=== PATIENT | male | born 1940 | race African-American/Black ===

== ENCOUNTER 2019-11-19 10:52 | Outpatient (CLI) | payer MEDICARE, SELFPAY ==
[2019-11-19 11:25] LABS: Basophils Percent Auto 0.5 % (0.2-1.2); Eosinophils Absolute Auto 0.3 K/mm3 (0-0.3); Eosinophils Percent Auto 3.8 % (0-4.4); Hematocrit 41.8 % (42.0-52.0); Hemoglobin 13.7 g/dL (14.0-18.0); Immature Granulocyte Absolute 0.01 K/mm3 (0.00-0.031); Immature Granulocyte Percent A 0.1 % (0-0.5); Lymphocytes Absolute Auto 2.19 K/mm3 (0.9-3.2); Lymphocytes Percent Auto 28.9 % (18.3-44.2); Mean Corpuscular HGB Conc 32.8 g/dl (32-36); Mean Corpuscular Hemoglobin 29.4 pg (26-34); Mean Corpuscular Volume 89.7 fl (80-100); Mean Platelet Volume 10.9 fl (7.4-10.4); Monocytes Absolute Auto 0.7 K/mm3 (0.1-0.6); Monocytes Percent Auto 8.6 % (2.6-8.5); Neutrophils Absolute Auto 4.4 K/mm3 (1.3-6.7); Neutrophils Percent Auto 58.1 % (45.5-73.1); Platelet Count Result 216 k/mm3 (150-375); Red Blood Count 4.66 M/mm3 (4.6-6.20); Red Cell Distribution Width 12.1 % (11.5-14.5); White Blood Count 7.6 K/mm3 (4.5-10.0)
[2019-11-19 11:38] LABS: Alanine Aminotransferase 21 U/L (4-50); Albumin Level 4.2 g/dL (3.5-5.1); Alkaline Phosphatase 89 U/L (38-126); Aspartate Amino Transferase 28 U/L (17-59); Bilirubin,Total 0.4 mg/dL (0.2-1.3); Blood Urea Nitrogen 16 mg/dL (9-20); Carbon Dioxide 27 mmol/L (22-30); Chloride 100 mmol/L (98-107); Estimated Glomerular Filt Rate > 60; Glucose 103 mg/dL (75-110); Potassium 4.3 mmol/L (3.4-5.0); Sodium 136 mmol/L (137-145)
[2019-11-19 12:08] LABS: Thyroid Stimulating Hormone 0.902 uIU/mL (0.465-4.680)
[2019-11-19 12:10] LABS: Prostate Specific Antigen 10.8 ng/mL (< OR = 4.0)
[2019-11-19 12:31] LABS: Hemoglobin A1C 6.5 % (<5.7)
[2019-11-19 12:32] LABS: Creatinine Urine 32.4 mg/dL
[2019-11-19 12:37] LABS: MALB Creatinine Ratio 18.8 mg/g (0-30); Microalbumin Urine Random 6.1 mg/L (0-16.7)
== END 2019-11-19 10:53 | disposition home or self-care (01) ==
PROVIDERS: PCP Internal Medicine; Visit Provider Internal Medicine
DX: M1A.9XX0 Chronic gout, unspecified, without tophus (tophi) (principal); E11.65 Type 2 diabetes mellitus with hyperglycemia; Z85.46 Personal history of malignant neoplasm of prostate; E04.2 Nontoxic multinodular goiter
CPT/HCPCS: 36415; 80053; 82043; 83036; 84153; 84443; 84550; 85025

== ENCOUNTER 2020-04-06 10:27 | Outpatient (CLI) | payer MEDICARE, SELFPAY ==
[2020-04-06 11:14] LABS: Creatinine Urine 71.2 mg/dL; Total Protein Urine Random 12 mg/dL
[2020-04-06 11:19] LABS: Albumin Level 4.1 g/dL (3.5-5.1); Blood Urea Nitrogen 16 mg/dL (9-20); Calcium 9.7 mg/dL (8.4-10.2); Carbon Dioxide 30 mmol/L (22-30); Chloride 104 mmol/L (98-107); Estimated Glomerular Filt Rate 59; Glucose 113 mg/dL (75-110); Phosphorus 3.2 mg/dL (2.5-4.5); Potassium 4.5 mmol/L (3.4-5.0); Sodium 137 mmol/L (137-145)
[2020-04-06 11:28] LABS: Parathyroid Intact 44.7 pg/mL (7.5-53.5)
[2020-04-06 11:58] LABS: Vitamin D 25 Hydroxy 51.4 ng/mL
== END 2020-04-06 10:28 | disposition home or self-care (01) ==
PROVIDERS: PCP Internal Medicine; Visit Provider Internal Medicine Nephrology
DX: N18.3 Chronic kidney disease, stage 3 (moderate) (principal); Z90.5 Acquired absence of kidney; E11.9 Type 2 diabetes mellitus without complications
CPT/HCPCS: 36415; 80069; 82306; 82570; 83970; 84156

== ENCOUNTER 2020-05-18 13:22 | Outpatient (CLI) | payer MEDICARE, SELFPAY ==
[2020-05-18 14:07] LABS: Basophils Percent Auto 0.5 % (0.2-1.2); Eosinophils Absolute Auto 0.4 K/mm3 (0-0.3); Eosinophils Percent Auto 4.8 % (0-4.4); Hematocrit 40.9 % (42.0-52.0); Hemoglobin 13.7 g/dL (14.0-18.0); Immature Granulocyte Absolute 0.02 K/mm3 (0.00-0.031); Immature Granulocyte Percent A 0.2 % (0-0.5); Lymphocytes Absolute Auto 2.13 K/mm3 (0.9-3.2); Lymphocytes Percent Auto 26.2 % (18.3-44.2); Mean Corpuscular HGB Conc 33.5 g/dl (32-36); Mean Corpuscular Hemoglobin 29.7 pg (26-34); Mean Corpuscular Volume 88.5 fl (80-100); Mean Platelet Volume 11.3 fl (7.4-10.4); Monocytes Absolute Auto 0.8 K/mm3 (0.1-0.6); Monocytes Percent Auto 9.2 % (2.6-8.5); Neutrophils Absolute Auto 4.8 K/mm3 (1.3-6.7); Neutrophils Percent Auto 59.1 % (45.5-73.1); Platelet Count Result 195 k/mm3 (150-375); Red Blood Count 4.62 M/mm3 (4.6-6.20); Red Cell Distribution Width 12.4 % (11.5-14.5); White Blood Count 8.1 K/mm3 (4.5-10.0)
[2020-05-18 14:17] LABS: Cholesterol 145 mg/dL (0-200); HDL Direct 34 mg/dL; Triglycerides 212 mg/dL (<150)
[2020-05-18 14:24] LABS: Hemoglobin A1C 6.3 % (<5.7)
[2020-05-18 14:27] LABS: LDL Cholesterol Direct 78 mg/dL
== END 2020-05-18 13:23 | disposition home or self-care (01) ==
PROVIDERS: PCP Internal Medicine; Visit Provider Internal Medicine
DX: E04.2 Nontoxic multinodular goiter (principal); E11.22 Type 2 diabetes mellitus with diabetic chronic kidney disease; E11.65 Type 2 diabetes mellitus with hyperglycemia; E78.2 Mixed hyperlipidemia; N18.3 Chronic kidney disease, stage 3 (moderate)
CPT/HCPCS: 36415; 80061; 83036; 85025

== ENCOUNTER 2020-08-10 13:44 | Outpatient (CLI) | payer MEDICARE, SELFPAY ==
[2020-08-10 14:29] LABS: Creatinine Urine 52.4 mg/dL; Total Protein Urine Random 13 mg/dL
[2020-08-10 14:37] LABS: Albumin Level 3.8 g/dL (3.5-5.1); Anion Gap 4 mmol/L (8-16); Blood Urea Nitrogen 17 mg/dL (9-20); Calcium 9.6 mg/dL (8.4-10.2); Carbon Dioxide 32 mmol/L (22-30); Chloride 104 mmol/L (98-107); Estimated Glomerular Filt Rate 59; Glucose 132 mg/dL (75-110); Phosphorus 3.1 mg/dL (2.5-4.5); Potassium 4.2 mmol/L (3.4-5.0); Sodium 140 mmol/L (137-145)
== END 2020-08-10 13:45 | disposition home or self-care (01) ==
PROVIDERS: PCP Internal Medicine; Referring Provider Internal Medicine; Visit Provider Internal Medicine Nephrology
DX: E11.9 Type 2 diabetes mellitus without complications (principal); I12.9 Hypertensive chronic kidney disease with stage 1 through stage 4 chronic kidney disease, or unspecified chronic kidney disease; N18.2 Chronic kidney disease, stage 2 (mild); R80.8 Other proteinuria
CPT/HCPCS: 36415; 80069; 82570; 84156

== ENCOUNTER 2020-11-18 10:18 | Outpatient (CLI) | payer MEDICARE, SELFPAY ==
--- NOTE | ~2020-11-18 | US_ITS ---
EXAMINATION: US thyroid DATE: 11/18/2020 11:05 INDICATION: Goiter with history of outside benign biopsy. TECHNIQUE: Multiple ultrasound images of the thyroid were obtained. COMPARISON: Ultrasound 09/04/2016, 01/22/14 FINDINGS: The right thyroid lobe measures 8.1 x 4.9 x 4.9 cm. The left thyroid lobe measures 10.2 x 5.0 x 5.6 cm. The thyroid is filled with nodules of similar ultrasound appearance without normal intervening p arenchyma. IMPRESSION: 1. Chronic multinodular goiter with overall increase in size of the thyroid from 09/04/2016. Biopsy i s likely not needed in the absence of cervical lymphadenopathy. Reviewed, dictated and finalized at location A. CARRIER IMPRESSION: 1. Chronic multinodular goiter with overall increase in size of the thyroid fro m 09/04/2016. Biopsy is likely not needed in the absence of cervical lymphadeno devin.
== END 2020-11-18 10:19 | disposition home or self-care (01) ==
PROVIDERS: PCP Internal Medicine; Visit Provider Internal Medicine
DX: E04.2 Nontoxic multinodular goiter (principal)
CPT/HCPCS: 76536

== ENCOUNTER 2020-12-10 09:29 | Emergency (ER) | payer MEDICARE, SELFPAY ==
[2020-12-10] VITALS (10 sets, daily range): BP systolic 100; BP diastolic 56; PULSE 77–86; RESP 11–24; TEMP 36.8; O2SAT 97–100
--- NOTE | ~2020-12-10 | XR_ITS ---
EXAMINATION: XR chest 1V portable INDICATION: Shortness of breath TECHNIQUE: Portable AP chest at 1222 hours COMPARISON: 04/23/2008 FINDINGS: There are airspace opacities of the mid and lower lung zones. There is no pleural effusion or pneumothorax. The cardiomediastinal silhouette is normal. The visualized osseous structures are un remarkable. IMPRESSION: 1. Airspace opacities of the mid and lower lung zones, likely pneumonia (appearance can be seen in CO VID 19). Reviewed, dictated and finalized at location A. SUPERINTENDENT IMPRESSION: 1. Airspace opacities of the mid and lower lung zones, likely pneumonia (appear ance can be seen in COVID 19).
--- NOTE | 2020-12-10 10:19 | ED.ABDPAIN ---
HPI - Abdominal Pain General Chief Complaint: Abdominal Pain Stated Complaint: abd pain, covid + 10 days ago Time Seen by Provider: 12/10/20 09:50 Source: patient Mode of arrival: ambulatory Limitations: no limitations History of Present Illness HPI narrative: An 80-year-old male comes into the emergency department today with complaints of abdominal pain. Patient stated that this was sharp, severe in nature and throughout his entire abdomen. Patient states that it started earlier this morning. He does note that he had some pain with this yesterday. He notes that this has happened in the past and spontaneously resolved before he can come to the emergency department. He does note now that by my examination his pain has completely subsided. He denies any associated symptoms including nausea, vomiting or diarrhea. Patient otherwise notes that his bowel and bladder habits have been normal for him. Related Data Home Medications Medication Instructions Recorded Confirmed calcium pantothenate 500 mg tablet mg PO 11/07/19 11/15/20 fluticasone propionate 50 2 spray NASAL DAILY 11/07/19 11/15/20 mcg/actuation nasal spray,suspension leuprolide (3 month) 11.25 mg (3 11.25 mg IM [id number] 11/07/19 11/15/20 month) intramuscular syringe kit mecobalamin (vitamin B12) 1,000 1,000 mcg SUBLINGUAL DAILY 11/07/19 11/15/20 mcg disintegrating tablet,sublingual Allergies Allergy/AdvReac Type Severity Reaction Status Date / Time adhesive tape Allergy Severe VERY LARGE Verified 12/10/20 09:52 BLISTERS morphine AdvReac Severe SEVERE N/V Verified 12/10/20 09:52 WITH EVERY DOSE Review of Systems Review of Systems: Narrative: CONSTITUTIONAL: Denies fever, chills, or sweats. EYES: Denies visual changes, redness, or discharge. ENT: Denies rhinorrhea, congestion, sore throat, or otalgia. CARDIOVASCULAR: Denies chest pain, palpitations, or edema. RESPIRATORY: Denies cough or dyspnea. GASTROINTESTINAL: Denies abdominal pain, nausea, vomiting, or diarrhea. GENITOURINARY: Denies dysuria or hematuria. SKIN: Denies rash or itching. MUSCULOSKELETAL: Denies back pain, joint pain, or myalgia. NEUROLOGIC: Denies headache, numbness, dizziness, or weakness. PSYCHIATRIC: Denies anxiety or depression. [facility] Family History Family History Sibling Family history of malignant neoplasm Family history of heart disease in male family member before age 55 Father Family history of diabetes mellitus in first degree relative Family history of heart disease in male family member before age 55 Diabetes mellitus Family history of cardiovascular disease, Onset Age: 76 Mother Family history of diabetes mellitus in first degree relative Family history of heart disease in male family member before age 55 Diabetes mellitus Hypertension Family history of cardiovascular disease, Onset Age: 77 Social History Social History Alcohol intake: never Gender identity (if verbalized by the patient): Male Exam Narrative: Exam Narrative: GENERAL: Well-appearing, well-nourished, and in no acute distress. HEAD: Normocephalic, atraumatic. EYES: PERRLA and EOMI. ENT: Nares clear, no rhinorrhea or epistaxis. Mucous membranes moist. NECK: Supple. No adenopathy or masses. No carotid bruits or JVD CHEST: Clear to auscultation. No respiratory distress. No wheezes rales or rhonchi HEART: Regular rate and rhythm. No murmur heard. Normal peripheral pulses. ABDOMEN: Soft, nontender, nondistended, normal active bowel sounds. EXTREMITIES: Normal range of motion. No edema. SKIN: Warm, dry, no rash. NEURO: No focal deficits. Alert and oriented x3. PSYCH: Normal mood and affect. Course Reevaluation(s) Reevaluation #1: Reevaluated patient. He was resting comfortably in the room, even asleep. I woke the patient and explained
[2020-12-10 10:29] LABS: Basophils Percent Auto 0.2 % (0.2-1.2); Hematocrit 42.7 % (42.0-52.0); Hemoglobin 14.3 g/dL (14.0-18.0); Immature Granulocyte Absolute 0.03 K/mm3 (0.00-0.031); Immature Granulocyte Percent A 0.5 % (0-0.5); Lymphocytes Absolute Auto 1.61 K/mm3 (0.9-3.2); Lymphocytes Percent Auto 24.6 % (18.3-44.2); Mean Corpuscular HGB Conc 33.5 g/dl (32-36); Mean Corpuscular Hemoglobin 29.4 pg (26-34); Mean Corpuscular Volume 87.9 fl (80-100); Mean Platelet Volume 11.5 fl (7.4-10.4); Monocytes Absolute Auto 0.8 K/mm3 (0.1-0.6); Monocytes Percent Auto 11.9 % (2.6-8.5); Neutrophils Absolute Auto 4.1 K/mm3 (1.3-6.7); Neutrophils Percent Auto 62.8 % (45.5-73.1); Platelet Count Result 142 k/mm3 (150-375); Red Blood Count 4.86 M/mm3 (4.6-6.20); Red Cell Distribution Width 12.1 % (11.5-14.5); White Blood Count 6.6 K/mm3 (4.5-10.0)
[2020-12-10 10:39] LABS: Add Urine Microscopic? YES; Appearance Urine Clear (Clear); Bacteria Urine Trace /hpf; Bilirubin Urine Negative (Negative); Blood Urine Negative (Negative); Color Urine Yellow (Yellow); Glucose Urine UA Negative (Negative); Ketones Urine Negative (Negative); Leukocyte Esterase Ur Negative LEU/UL (Negative); Mucus Urine Rare /lpf; Nitrate Urine Negative (Negative); Protein Urine 1+ mg/dL (Negative); Specific Grav Ur 1.023 (1.001-1.035); Squamous Epithelial Cell Urine Occasional /hpf (Few); Transitional Epi Cells Urine Rare /hpf (None Seen); WBC Urine 0-3 /hpf
[2020-12-10 11:12] LABS: Alanine Aminotransferase 24 U/L (4-50); Albumin Level 3.8 g/dL (3.5-5.1); Alkaline Phosphatase 58 U/L (38-126); Anion Gap 5 mmol/L (8-16); Aspartate Amino Transferase 39 U/L (17-59); Bilirubin,Total 0.6 mg/dL (0.2-1.3); Blood Urea Nitrogen 21 mg/dL (9-20); Calcium 9.4 mg/dL (8.4-10.2); Carbon Dioxide 29 mmol/L (22-30); Chloride 100 mmol/L (98-107); Estimated CRCL calculation 34 ml/min; Estimated Glomerular Filt Rate 44; Glucose 117 mg/dL (75-110); Lipase 154 U/L (23-300); Potassium 4.4 mmol/L (3.4-5.0); Sodium 134 mmol/L (137-145)
[2020-12-10 11:23] LABS: Troponin I < 0.012 ng/mL (0.000-0.034)
== END 2020-12-10 13:12 | disposition home or self-care (01) ==
PROVIDERS: Emergency Provider Emergency Medicine; PCP Internal Medicine
DX: U07.1 COVID-19 (principal); R10.84 Generalized abdominal pain; R91.8 Other nonspecific abnormal finding of lung field
CPT/HCPCS: 36415; 71045; 80053; 81001; 83690; 84484; 85025; 99284

== ENCOUNTER 2020-12-23 09:31 | Outpatient (CLI) | payer MEDICARE, SELFPAY ==
[2020-12-23 10:01] LABS: Hematocrit 40.9 % (42.0-52.0); Hemoglobin 13.3 g/dL (14.0-18.0); Mean Corpuscular HGB Conc 32.5 g/dl (32-36); Mean Corpuscular Hemoglobin 28.6 pg (26-34); Mean Platelet Volume 9.9 fl (7.4-10.4); Platelet Count Result 382 k/mm3 (150-375); Red Blood Count 4.65 M/mm3 (4.6-6.20); Red Cell Distribution Width 11.9 % (11.5-14.5); White Blood Count 6.8 K/mm3 (4.5-10.0)
[2020-12-23 10:23] LABS: Hemoglobin A1C 6.5 % (<5.7)
[2020-12-23 10:26] LABS: Alanine Aminotransferase 34 U/L (4-50); Albumin Level 3.9 g/dL (3.5-5.1); Alkaline Phosphatase 79 U/L (38-126); Anion Gap 6 mmol/L (8-16); Aspartate Amino Transferase 45 U/L (17-59); Bilirubin,Total 0.5 mg/dL (0.2-1.3); Blood Urea Nitrogen 15 mg/dL (9-20); Calcium 10.1 mg/dL (8.4-10.2); Carbon Dioxide 29 mmol/L (22-30); Chloride 103 mmol/L (98-107); Estimated Glomerular Filt Rate 51; Glucose 126 mg/dL (75-110); Potassium 4.5 mmol/L (3.4-5.0); Sodium 138 mmol/L (137-145)
[2020-12-23 10:35] LABS: Creatinine Urine 233.1 mg/dL
[2020-12-23 10:40] LABS: MALB Creatinine Ratio 57.4 mg/g (0-30); Microalbumin Urine Random 133.9 mg/L (0-16.7)
[2020-12-23 10:58] LABS: Prostate Specific Antigen 23.6 ng/mL (< OR = 4.0)
[2020-12-23 11:35] LABS: Folic Acid 8.6 ng/mL (2.76->20); Vitamin B12 > 1000.0 pg/mL (239-931)
== END 2020-12-23 09:32 | disposition home or self-care (01) ==
PROVIDERS: PCP Internal Medicine; Visit Provider Internal Medicine
DX: E11.22 Type 2 diabetes mellitus with diabetic chronic kidney disease (principal); E11.65 Type 2 diabetes mellitus with hyperglycemia; E78.2 Mixed hyperlipidemia; I12.9 Hypertensive chronic kidney disease with stage 1 through stage 4 chronic kidney disease, or unspecified chronic kidney disease; D64.9 Anemia, unspecified; Z12.5 Encounter for screening for malignant neoplasm of prostate; N18.30 Chronic kidney disease, stage 3 unspecified
CPT/HCPCS: 36415; 80053; 82043; 82607; 82746; 83036; 84153; 85027; G0103

== ENCOUNTER 2021-01-27 11:04 | Outpatient (CLI) | payer MEDICARE, SELFPAY ==
[2021-01-27 12:41] LABS: Albumin Level 4.3 g/dL (3.5-5.1); Anion Gap 6 mmol/L (8-16); Blood Urea Nitrogen 15 mg/dL (9-20); Calcium 10.1 mg/dL (8.4-10.2); Carbon Dioxide 31 mmol/L (22-30); Chloride 102 mmol/L (98-107); Estimated Glomerular Filt Rate 59; Glucose 98 mg/dL (75-110); Hemoglobin A1C 6.3 % (<5.7); Phosphorus 3.4 mg/dL (2.5-4.5); Potassium 4.8 mmol/L (3.4-5.0); Sodium 139 mmol/L (137-145)
[2021-01-27 13:02] LABS: Creatinine Urine 30.9 mg/dL; Total Protein Urine Random 13 mg/dL; Ur Ttl Prot Creatinine Ratio 0.42 mg/mg (0-0.20)
== END 2021-01-27 11:05 | disposition home or self-care (01) ==
LOC: ANHLAB 11:08
PROVIDERS: PCP Internal Medicine; Visit Provider Internal Medicine Nephrology
DX: N18.2 Chronic kidney disease, stage 2 (mild) (principal); E11.9 Type 2 diabetes mellitus without complications; Z90.5 Acquired absence of kidney
CPT/HCPCS: 36415; 80069; 82570; 83036; 84156

== ENCOUNTER 2021-04-12 11:28 | Outpatient (CLI) | payer MEDICARE, SELFPAY ==
[2021-04-12 12:00] LABS: Basophils Percent Auto 0.4 % (0.2-1.2); Eosinophils Absolute Auto 0.3 K/mm3 (0-0.3); Eosinophils Percent Auto 4.1 % (0-4.4); Hematocrit 41.9 % (42.0-52.0); Hemoglobin 13.5 g/dL (14.0-18.0); Immature Granulocyte Absolute 0.02 K/mm3 (0.00-0.031); Immature Granulocyte Percent A 0.2 % (0-0.5); Lymphocytes Absolute Auto 2.58 K/mm3 (0.9-3.2); Mean Corpuscular HGB Conc 32.2 g/dl (32-36); Mean Corpuscular Hemoglobin 29.4 pg (26-34); Mean Corpuscular Volume 91.3 fl (80-100); Monocytes Absolute Auto 0.6 K/mm3 (0.1-0.6); Monocytes Percent Auto 7.3 % (2.6-8.5); Neutrophils Absolute Auto 4.7 K/mm3 (1.3-6.7); Platelet Count Result 196 k/mm3 (150-375); Red Blood Count 4.59 M/mm3 (4.6-6.20); Red Cell Distribution Width 12.3 % (11.5-14.5); White Blood Count 8.3 K/mm3 (4.5-10.0)
[2021-04-12 12:06] LABS: Hemoglobin A1C 6.4 % (<5.7)
[2021-04-12 12:15] LABS: Alanine Aminotransferase 19 U/L (4-50); Albumin Level 4.3 g/dL (3.5-5.1); Alkaline Phosphatase 78 U/L (38-126); Anion Gap 8 mmol/L (8-16); Aspartate Amino Transferase 32 U/L (17-59); Bilirubin,Total 0.3 mg/dL (0.2-1.3); Blood Urea Nitrogen 15 mg/dL (9-20); Calcium 10.1 mg/dL (8.4-10.2); Carbon Dioxide 28 mmol/L (22-30); Chloride 106 mmol/L (98-107); Estimated Glomerular Filt Rate 54; Glucose 103 mg/dL (75-110); Potassium 4.4 mmol/L (3.4-5.0); Sodium 142 mmol/L (137-145)
[2021-04-12 12:55] LABS: Creatinine Urine 74.8 mg/dL
[2021-04-12 13:00] LABS: MALB Creatinine Ratio 11.1 mg/g (0-30); Microalbumin Urine Random 8.3 mg/L (0-16.7)
== END 2021-04-12 11:29 | disposition home or self-care (01) ==
PROVIDERS: PCP Internal Medicine; Visit Provider Internal Medicine
DX: E11.22 Type 2 diabetes mellitus with diabetic chronic kidney disease (principal); N18.2 Chronic kidney disease, stage 2 (mild); E11.65 Type 2 diabetes mellitus with hyperglycemia; D63.8 Anemia in other chronic diseases classified elsewhere
CPT/HCPCS: 36415; 80053; 82043; 83036; 85025

== ENCOUNTER 2021-07-08 12:02 | Outpatient (CLI) | payer MEDICARE, SELFPAY ==
[2021-07-08 13:15] LABS: Alanine Aminotransferase 25 U/L (4-50); Albumin Level 4.4 g/dL (3.5-5.1); Alkaline Phosphatase 82 U/L (38-126); Anion Gap 9 mmol/L (8-16); Aspartate Amino Transferase 46 U/L (17-59); Bilirubin,Total 0.4 mg/dL (0.2-1.3); Blood Urea Nitrogen 15 mg/dL (9-20); Calcium 10.1 mg/dL (8.4-10.2); Carbon Dioxide 26 mmol/L (22-30); Chloride 104 mmol/L (98-107); Estimated Glomerular Filt Rate 54; Glucose 105 mg/dL (65-110); Potassium 4.5 mmol/L (3.4-5.0); Sodium 139 mmol/L (137-145)
[2021-07-08 14:10] LABS: Creatinine Urine 100.3 mg/dL
[2021-07-08 14:11] LABS: Hemoglobin A1C 6.7 % (<5.7)
[2021-07-08 14:29] LABS: MALB Creatinine Ratio < 6.0 mg/g (0-30); Microalbumin Urine Random < 6.0 mg/L (0-16.7)
== END 2021-07-08 12:03 | disposition home or self-care (01) ==
PROVIDERS: PCP Internal Medicine; Visit Provider Internal Medicine
DX: E11.22 Type 2 diabetes mellitus with diabetic chronic kidney disease (principal); N18.30 Chronic kidney disease, stage 3 unspecified; E11.65 Type 2 diabetes mellitus with hyperglycemia
CPT/HCPCS: 36415; 80053; 82043; 83036

== ENCOUNTER 2021-11-01 10:46 | Outpatient (CLI) | payer MEDICARE, SELFPAY ==
--- NOTE | 2021-11-01 11:00 | ECG_ITS ---
Measurements Intervals Wolsey Rate: 73 P: 65 ND: 150 QRS: 59 QRSD: 84 T: 65 QT: 365 QTc: 405 Interpretive Statements SINUS RHYTHM BASELINE ARTIFACT- I, II, AVR NORMAL ECG Electronically Signed On 11-01-2021 11:37:07 RECEIVING DISTRIBUTION STATION OPERATOR by Preston Chester D.O.
[2021-11-01 11:40] LABS: Anion Gap 9 mmol/L (8-16); Blood Urea Nitrogen 20 mg/dL (9-20); Calcium 9.7 mg/dL (8.4-10.2); Carbon Dioxide 26 mmol/L (22-30); Chloride 103 mmol/L (98-107); Estimated Glomerular Filt Rate 37; Glucose 106 mg/dL (65-110); INR 1.1; Potassium 4.8 mmol/L (3.4-5.0); Prothrombin Time 13.9 Seconds (11.1-14.7); Sodium 138 mmol/L (137-145)
[2021-11-01 11:41] LABS: Partial Thromboplastin Time 26.2 SECONDS (22.3-36.8)
== END 2021-11-01 10:47 | disposition home or self-care (01) ==
LOC: ANHSURGERY 10:50
PROVIDERS: Anesthesiology; PCP Internal Medicine; Visit Provider Urology
DX: Z01.818 Encounter for other preprocedural examination (principal); C64.9 Malignant neoplasm of unspecified kidney, except renal pelvis; I12.9 Hypertensive chronic kidney disease with stage 1 through stage 4 chronic kidney disease, or unspecified chronic kidney disease; E11.22 Type 2 diabetes mellitus with diabetic chronic kidney disease; N18.30 Chronic kidney disease, stage 3 unspecified
CPT/HCPCS: 36415; 80048; 85610; 85730; 93005

== ENCOUNTER 2021-11-03 01:31 | Day surgery (SDC) | payer MEDICARE, SELFPAY ==
--- NOTE | 2021-10-27 07:26 | PM.HPGS ---
History of Present Illness History of Present Illness Consent: Risks, benefits, and alternatives have been discussed and questions answered. Patient agrees to proceed with procedure. Chief complaint: incomplete bladder emptying, kidney cancer Narrative: Buck Givens is a 81 year old male who is status post nephrectomy for renal cell carcinoma and prostate brachytherapy for prostate cancer in the remote past. He recently presented with marked obstructive voiding symptoms and cystoscopy shows both the bulbous urethral stricture and a high median bar. After discussion of options he elects for cysto with urethral dilatation and transurethral incision of prostate. He is aware the risk including, but not but not restricted to, recurrent voiding difficulty, urinary incontinence , hematuria. Review of Systems Cardiovascular: Cardiovascular: Denies chest pain, Denies lightheadedness, Denies palpitations and Denies dyspnea Respiratory: Respiratory: Denies dyspnea Gastrointestinal: Gastrointestinal: Denies diarrhea, Denies nausea and Denies vomiting Genitourinary: Genitourinary: Denies hematuria and Denies dysuria Endocrine: Endocrine: Denies palpitations PMFSH Family History Family History Sibling Family history of malignant neoplasm Family history of heart disease in male family member before age 55 Diabetes mellitus Hypertension Heart disease Father Family history of diabetes mellitus in first degree relative Family history of heart disease in male family member before age 55 Diabetes mellitus Family history of cardiovascular disease, Onset Age: 76 Hypertension Heart disease Mother Family history of diabetes mellitus in first degree relative Family history of heart disease in male family member before age 55 Diabetes mellitus Hypertension Family history of cardiovascular disease, Onset Age: 77 Heart disease Social History Social History Smoking status: Never smoker Second hand tobacco smoke exposure: No Alcohol intake: never Substance use: never Substance use type: does not use Gender identity (if verbalized by the patient): Male Meds Home Medications and Allergies Home Medications Medication Instructions Recorded Confirmed Type calcium pantothenate 500 mg tablet mg PO 11/07/19 07/22/21 History fluticasone propionate 50 2 spray NASAL DAILY 11/07/19 07/22/21 History mcg/actuation nasal spray,suspension leuprolide (3 month) 11.25 mg (3 11.25 mg IM [id number] 11/07/19 07/22/21 History month) intramuscular syringe kit mecobalamin (vitamin B12) 1,000 1,000 mcg SUBLINGUAL DAILY 11/07/19 07/22/21 History mcg disintegrating tablet,sublingual aspirin 81 mg tablet,delayed 81 mg PO DAILY #1 tablet 12/24/20 07/22/21 Rx release allopurinol 100 mg tablet 100 mg PO DAILY #90 tablet 04/11/21 07/22/21 Rx ezetimibe 10 mg-simvastatin 80 mg See Rx Instructions .ROUTE 06/24/21 07/22/21 Rx tablet .COMPLEX #90 tablet dapagliflozin 5 mg tablet 5 mg PO DAILY #90 tablet 07/06/21 07/22/21 Rx losartan 25 mg tablet See Rx Instructions .ROUTE 10/04/21 Rx .COMPLEX #90 tablet Allergies Allergy/AdvReac Type Severity Reaction Status Date / Time adhesive tape Allergy Severe VERY LARGE Verified 07/22/21 08:43 BLISTERS morphine AdvReac Severe SEVERE N/V Verified 07/22/21 08:43 WITH EVERY DOSE Exam Const: General: no acute distress Resp: Effort & Inspection: normal respiratory effort GI: Inspection: non-distended GI Palp: No abdominal tenderness and No Guarding due to palpation present (GI) Auscultation: normal bowel sounds Assessment and Plan Assessment and plan (1) History of prostate cancer: Code(s): Z85.46 - Personal history of malignant neoplasm of prostate Status: Acute Assessment and Plan: Cysto
[2021-11-01 09:30] VITALS: BMI 25.4
--- NOTE | 2021-11-01 09:52 | PC.NURSE ---
Report to the Outpatient Waiting Room, entrance under the green pavilion located off [facility], at time _11:30AM on date __11/03/21 . OR Time: ___1:30PM . - You and your visitor will be asked a series of questions to screen for COVID 19 for your protection. - A mask is required within the hospital. - Only one visitor is allowed at this time. Patient visitors will be guided where to wait when not with patient. Preoperative COVID Testing Requirements: No COVID Test needed if: (proof is required; if not received patient will have Rapid Test prior to entry) - Patient has received COVID Vaccine at least 14 days prior to procedure date or - Patient has positive COVID test result within last 90 days of surgery date. COVID Test needed if above criteria is not met If not COVID vaccinated a COVID test must be conducted within 72 hours of surgery and patient is asked to isolate self from time of testing until procedure. You will go to the [facility] Testing Site for your COVID testing. The [facility] Testing site is located at the corner of [address] [facility]. You will only be called if COVID results are positive and your surgeon may reschedule your elective surgery date. Patients may have clear liquids (water, carbonated beverages, clear teas, apple juice) until 3 hours prior to surgery with a maximum of 20 ounces. - No food from midnight until time of surgery - Infants may have breast milk until 4 hours before surgery, infant formula 6 hours prior to surgery. - Children will be allowed to drink immediately following surgery. If applicable, please bring a bottle or sippy cup to assist with drinking. Juice, water, soda, and popsicles are readily available. For infants on formula, please bring formula the day of surgery. Pacifiers are allowed. Take the following medications with a SIP of water the morning of surgery: ____NONE Medications to discontinue per physician HOLS ASPIRIN & ALL VITAMINS/SUPPLEMENTS 3 Date to take last dose Please no make-up, nail kazakh, hairspray, perfume, deodorant, or body powder the day of surgery. No jewelry (including any body piercings) or valuables the day of surgery, leave them at home. Please take a shower or bath the night before, or the morning of, surgery with an antibacterial soap. Wear comfortable, loose fitting clothing. Children are encouraged to wear pajamas. - Jewelry must be removed prior to entering the operating room. Rings and piercings that are not removed may be cut off. - The hospital will not accept responsibility for valuables. - Please leave all valuables, including medications, at home the day of surgery. If you are going home after surgery, a licensed special education bus driver must drive you home. - NO public transportation without another adult. - We recommend that an adult stay with you for 24 hours following discharge. - We also recommend that you do not drive, make important decision, drink alcoholic beverages, or take any drugs that were not prescribed by your health care provider for at least 24 hours after your discharge time. For Pediatric surgeries, we recommend two adults accompany the child home (only one inside the building at this time). Follow any additional instructions given to you from your surgeon. Telephone instructions given to and asked if any additional questions and then verbalized understanding. Patient advised to call surgeon office or pre surgery nurse liaison [phone] if any additional questions.
--- NOTE | 2021-11-01 09:53 | PC.NURSE ---
Report to the Outpatient Waiting Room, entrance under the green pavilion located off [facility], at time _11:30AM on date _11/03/21 . OR Time: __1:30PM . - You and your visitor will be asked a series of questions to screen for COVID 19 for your protection. - A mask is required within the hospital. - Only one visitor is allowed at this time. Patient visitors will be guided where to wait when not with patient. Preoperative COVID Testing Requirements: No COVID Test needed if: (proof is required; if not received patient will have Rapid Test prior to entry) - Patient has received COVID Vaccine at least 14 days prior to procedure date or - Patient has positive COVID test result within last 90 days of surgery date. COVID Test needed if above criteria is not met If not COVID vaccinated a COVID test must be conducted within 72 hours of surgery and patient is asked to isolate self from time of testing until procedure. You will go to the [facility] Testing Site for your COVID testing. The [facility] Testing site is located at the corner of [address] [facility]. You will only be called if COVID results are positive and your surgeon may reschedule your elective surgery date. Patients may have clear liquids (water, carbonated beverages, clear teas, apple juice) until 3 hours prior to surgery with a maximum of 20 ounces. - No food from midnight until time of surgery - Infants may have breast milk until 4 hours before surgery, infant formula 6 hours prior to surgery. - Children will be allowed to drink immediately following surgery. If applicable, please bring a bottle or sippy cup to assist with drinking. Juice, water, soda, and popsicles are readily available. For infants on formula, please bring formula the day of surgery. Pacifiers are allowed. Take the following medications with a SIP of water the morning of surgery: _NONE Medications to discontinue per physician HOLD ASPIRIN & ALL VITAMINS/SUPPLEMENTS 7 DAYS PRE-OP PER DR. WEBB Date to take last dose 10/27/21 Please no make-up, nail malay, hairspray, perfume, deodorant, or body powder the day of surgery. No jewelry (including any body piercings) or valuables the day of surgery, leave them at home. Please take a shower or bath the night before, or the morning of, surgery with an antibacterial soap. Wear comfortable, loose fitting clothing. Children are encouraged to wear pajamas. - Jewelry must be removed prior to entering the operating room. Rings and piercings that are not removed may be cut off. - The hospital will not accept responsibility for valuables. - Please leave all valuables, including medications, at home the day of surgery. If you are going home after surgery, a licensed mobile lounge driver must drive you home. - NO public transportation without another adult. - We recommend that an adult stay with you for 24 hours following discharge. - We also recommend that you do not drive, make important decision, drink alcoholic beverages, or take any drugs that were not prescribed by your health care provider for at least 24 hours after your discharge time. For Pediatric surgeries, we recommend two adults accompany the child home (only one inside the building at this time). Follow any additional instructions given to you from your surgeon. Telephone instructions given to __PATIENT and asked if any additional questions and then verbalized understanding. Patient advised to call surgeon office or pre surgery nurse liaison [phone] if any additional questions.
[2021-11-03] VITALS (10 sets, daily range): BP systolic 151–169; BP diastolic 64–83; PULSE 66–81; RESP 16–19; TEMP 36.4–37; O2SAT 99–100
--- NOTE | 2021-11-03 07:01 | WPDHPUPDATE1 ---
History and Physical Update Update Date/Time: 11/03/21 07:01 History and Physical has been reviewed, including an updated exam of the patient. There are NO changes in the patient's condition. Risks, benefits, and alternatives have been discussed and questions answered. Patient agrees to proceed with procedure.
[2021-11-03] MEDS: LACTATED RINGERS 1,000 ML 30 ML IV CONT ×2 (11:11→14:21)
--- NOTE | 2021-11-03 11:22 | WPDANESEPPF ---
Anes - Initial Pre Proc Eval Procedure: Operation Date: 11/03/21 12:45 Proposed Procedures p Cystoscopy, Urethral Dilatation - Artemio Alexandra MD s Trans Urethral Incision of The Prostate - Artemio Alexandra MD Date/Time: 11/03/21 11:22 Surgeon: Artemio Alexandra MD Pre Op Diagnosis: incomplete bladder emptying, kidney cancer Patient Data Age: 81 Gender: M Height: 1.88 m Weight: 88 kg Last Vital Signs Temp 37.0 C 11/03/21 11:14 Pulse 79 11/03/21 11:14 Resp 18 11/03/21 11:14 BP 151/77 H 11/03/21 11:14 Pulse Ox 100 11/03/21 11:14 Allergies Allergy/AdvReac Type Severity Reaction Status Date / Time adhesive tape Allergy Severe VERY LARGE Verified 11/03/21 10:56 BLISTERS morphine AdvReac Severe SEVERE N/V Verified 11/03/21 10:56 WITH EVERY DOSE Home Medications Medication Instructions Recorded Confirmed Type calcium pantothenate 500 mg tablet 500 mg PO DAILY 11/07/19 11/03/21 History fluticasone propionate 50 2 spray NASAL DAILY 11/07/19 11/03/21 History mcg/actuation nasal spray,suspension leuprolide (3 month) 11.25 mg (3 11.25 mg IM [id number] 11/07/19 11/03/21 History month) intramuscular syringe kit mecobalamin (vitamin B12) 1,000 1,000 mcg SUBLINGUAL DAILY 11/07/19 11/03/21 History mcg disintegrating tablet,sublingual aspirin 81 mg tablet,delayed 81 mg PO DAILY #1 tablet 12/24/20 11/03/21 Rx release allopurinol 100 mg tablet 100 mg PO DAILY #90 tablet 04/11/21 11/03/21 Rx dapagliflozin [Farxiga] 5 mg PO QAM 11/01/21 11/03/21 History ezetimibe-simvastatin 1 tablet PO DAILY 11/01/21 11/03/21 History losartan 25 mg PO QAM 11/01/21 11/03/21 History Patient hx anesthesia problems: none Family hx anesthesia problems: none Results Review: All pre-operative results and documents have been reviewed as part of the pre-operative evaluation. [facility] Past Medical History Medical History (Updated 11/02/21 @ 09:32 by Willie Appiah DO) CKD stage 3 due to type 2 diabetes mellitus Essential hypertension Mixed hyperlipidemia Type 2 diabetes mellitus with hyperglycemia Family History Family History Sibling Family history of malignant neoplasm Family history of heart disease in male family member before age 55 Diabetes mellitus Hypertension Heart disease Father Family history of diabetes mellitus in first degree relative Family history of heart disease in male family member before age 55 Diabetes mellitus Family history of cardiovascular disease, Onset Age: 76 Hypertension Heart disease Mother Family history of diabetes mellitus in first degree relative Family history of heart disease in male family member before age 55 Diabetes mellitus Hypertension Family history of cardiovascular disease, Onset Age: 77 Heart disease Social History Social History Smoking status: Never smoker Second hand tobacco smoke exposure: No Alcohol intake: never Substance use: never Substance use type: does not use Living arrangements: alone Gender identity (if verbalized by the patient): Male Spiritual care concerns: No Anes - Eval Final PreProcedure Day of Procedure 11/03/21 11:22 Patient weight: normal Heart: regular rate and rhythm Lungs: clear to auscultation and normal air movement Airway: Mallampati scale class II Neurological: alert and oriented Last oral intake: >/= 8 hours ASA classification: III Emergent: no Anesthetic plan: proceed Anesthesia type and monitoring: general LMA and standard monitoring Results Review: All pre-operative results and documents have been reviewed as part of the pre-operative evaluation. Informed Consent: The patient's anesthetic plan and its attendant risks and benefits were discussed with the patient/family/POA. Questions were solicited and answers prov
[2021-11-03 12:23] LABS: Glucose Point of Care 100 mg/dl (65-105)
[2021-11-03] MEDS: ceFAZolin 2 GM/D5W 50 ML 2 GM/50 ML BAG IVPB (12:42)
[2021-11-03] MEDS: LIDOCAINE HCL 2% GEL UROJET 10 ML PKG MUCOUS MEM (13:03)
--- NOTE | 2021-11-03 13:06 | W.PM.PROC2 ---
Procedure Note - Detailed Date of Procedure 11/03/21 Pre-op Diagnosis Urethral stricture, bladder neck contracture Post-op Diagnosis same Procedure Performed 1. Cystoscopy, urethral dilatation 2. TUIP Surgeon Artemio Alexandra MD Anesthesia general Description of Procedure patient brought to the op suite recent prepped draped in routine sterile fashion while in dorsal lithotomy position after the uneventful induction of a general LMA anesthetic. Cystoscopy with a 19 F rigid cystoscope shows a moderately constricting bulbous urethral stricture. I dilated this from 16 F to 26 F with Ren sounds. Patient has had prostate brachytherapy but has mild lateral lobe hyperplasia is no median bar. Bladder was trabeculated. Ureteral orifices were well away from the bladder neck and there was no intravesical foreign body or neoplasm. Using a Pearson knife I performed a transurethral incision of the prostate extending from the bladder neck to the verumontanum until the capsular fibers of the prostate were identified. Hemostasis is obtained with electrocautery in an 18 F urethral catheter was placed to drainage. Drains Yes Packing No Pathology none sent Complications No immediate complications Condition stable Disposition PACU
[2021-11-03] MEDS: fentaNYL CITRATE INJ (*CRX) 100 MCG/2 ML VIAL 25 MCG IV PUSH (13:56)
--- NOTE | 2021-11-04 07:21 | SUR.PHASEII ---
education to patient about powell care and leg bag understanding stated
== END 2021-11-03 15:35 | disposition home or self-care (01) ==
PROVIDERS: PCP Internal Medicine; Visit Provider Urology
PROC: 0T7D8ZZ Dilation of Urethra, Via Natural or Artificial Opening Endoscopic (ICD-10-PCS; CPT 52281; principal; 2021-11-03 12:45)
PROC: 0VT08ZZ Resection of Prostate, Via Natural or Artificial Opening Endoscopic (ICD-10-PCS; CPT 52601; 2021-11-03 12:45)
DX: N35.912 Unspecified bulbous urethral stricture, male (principal); N40.1 Benign prostatic hyperplasia with lower urinary tract symptoms; N13.8 Other obstructive and reflux uropathy; I12.9 Hypertensive chronic kidney disease with stage 1 through stage 4 chronic kidney disease, or unspecified chronic kidney disease; E11.22 Type 2 diabetes mellitus with diabetic chronic kidney disease; N18.30 Chronic kidney disease, stage 3 unspecified; E78.2 Mixed hyperlipidemia; Z79.82 Long term (current) use of aspirin; Z90.5 Acquired absence of kidney; Z85.46 Personal history of malignant neoplasm of prostate; Z85.528 Personal history of other malignant neoplasm of kidney
CPT/HCPCS: 52450; 36415; 80048; 82948; 85610; 85730; 93005; A9270; J0131; J0690; J2405; J2704; J3010; J7120

== ENCOUNTER 2021-11-14 10:15 | Outpatient (CLI) | payer MEDICARE, SELFPAY ==
[2021-11-14 11:11] LABS: Albumin Level 4.1 g/dL (3.5-5.1); Anion Gap 8 mmol/L (8-16); Blood Urea Nitrogen 15 mg/dL (9-20); Calcium 9.8 mg/dL (8.4-10.2); Carbon Dioxide 29 mmol/L (22-30); Chloride 102 mmol/L (98-107); Estimated Glomerular Filt Rate 50; Glucose 217 mg/dL (65-110); Phosphorus 3.6 mg/dL (2.5-4.5); Potassium 4.3 mmol/L (3.4-5.0); Sodium 139 mmol/L (137-145)
[2021-11-14 11:57] LABS: Creatinine Urine 120.1 mg/dL; Total Protein Urine Random 22 mg/dL; Ur Ttl Prot Creatinine Ratio 0.18 mg/mg (0-0.20)
== END 2021-11-14 10:16 | disposition home or self-care (01) ==
PROVIDERS: PCP Internal Medicine; Visit Provider Internal Medicine Nephrology
DX: N18.2 Chronic kidney disease, stage 2 (mild) (principal); E11.9 Type 2 diabetes mellitus without complications; I10 Essential (primary) hypertension; R80.8 Other proteinuria
CPT/HCPCS: 36415; 80069; 82570; 84156

== ENCOUNTER 2022-01-19 15:20 | Outpatient (CLI) | payer MEDICARE, SELFPAY ==
[2022-01-19 15:52] LABS: Basophils Absolute Auto 0.1 K/mm3 (0.0-0.1); Basophils Percent Auto 0.5 % (0.2-1.2); Eosinophils Absolute Auto 0.3 K/mm3 (0-0.3); Eosinophils Percent Auto 3.2 % (0-4.4); Hematocrit 44.9 % (42.0-52.0); Hemoglobin 14.6 g/dL (14.0-18.0); Immature Granulocyte Absolute 0.02 K/mm3 (0.00-0.031); Immature Granulocyte Percent A 0.2 % (0-0.5); Lymphocytes Absolute Auto 3.17 K/mm3 (0.9-3.2); Lymphocytes Percent Auto 32.8 % (18.3-44.2); Mean Corpuscular HGB Conc 32.5 g/dl (32-36); Mean Corpuscular Hemoglobin 29.7 pg (26-34); Mean Corpuscular Volume 91.3 fl (80-100); Mean Platelet Volume 10.5 fl (7.4-10.4); Monocytes Absolute Auto 0.8 K/mm3 (0.1-0.6); Monocytes Percent Auto 8.1 % (2.6-8.5); Neutrophils Absolute Auto 5.3 K/mm3 (1.3-6.7); Neutrophils Percent Auto 55.2 % (45.5-73.1); Platelet Count Result 198 k/mm3 (150-375); Red Blood Count 4.92 M/mm3 (4.6-6.20); White Blood Count 9.7 K/mm3 (4.5-10.0)
[2022-01-19 16:02] LABS: Alanine Aminotransferase 21 U/L (4-50); Albumin Level 4.1 g/dL (3.5-5.1); Alkaline Phosphatase 85 U/L (38-126); Anion Gap 9 mmol/L (8-16); Aspartate Amino Transferase 33 U/L (17-59); Bilirubin,Total 0.5 mg/dL (0.2-1.3); Blood Urea Nitrogen 17 mg/dL (9-20); Calcium 9.7 mg/dL (8.4-10.2); Carbon Dioxide 26 mmol/L (22-30); Chloride 104 mmol/L (98-107); Cholesterol 168 mg/dL (0-200); Estimated Glomerular Filt Rate 54; Glucose 95 mg/dL (65-110); HDL Direct 45 mg/dL; Potassium 4.2 mmol/L (3.4-5.0); Sodium 139 mmol/L (137-145); Triglycerides 139 mg/dL (<150)
[2022-01-19 16:12] LABS: Hemoglobin A1C 6.6 % (<5.7)
[2022-01-19 16:13] LABS: LDL Cholesterol Direct 88 mg/dL
[2022-01-19 16:21] LABS: MALB Creatinine Ratio 40.8 mg/g (0-30); Microalbumin Urine Random 68.9 mg/L (0-16.7)
[2022-01-19 16:32] LABS: Vitamin D 25 Hydroxy 57.6 ng/mL
[2022-01-19 16:33] LABS: Thyroid Stimulating Hormone 0.819 uIU/mL (0.465-4.680)
== END 2022-01-19 15:21 | disposition home or self-care (01) ==
LOC: ANHLAB 15:24
PROVIDERS: PCP Internal Medicine; Visit Provider Internal Medicine
DX: E11.65 Type 2 diabetes mellitus with hyperglycemia (principal); E78.2 Mixed hyperlipidemia; E11.22 Type 2 diabetes mellitus with diabetic chronic kidney disease; N18.30 Chronic kidney disease, stage 3 unspecified; N40.0 Benign prostatic hyperplasia without lower urinary tract symptoms; E55.9 Vitamin D deficiency, unspecified
CPT/HCPCS: 36415; 80053; 80061; 82043; 82306; 83036; 84443; 85025

== ENCOUNTER 2022-02-01 10:07 | Outpatient (CLI) | payer MEDICARE, SELFPAY ==
--- NOTE | ~2022-02-01 | US_ITS ---
EXAMINATION: US thyroid EXAM DATE: 02/01/2022 12:21 INDICATION: E04.2 - Nontoxic multinodular goiter . TECHNIQUE: Multiple grayscale and Doppler images of the thyroid were obtained (by a technologist who performed the scan) and subsequently reviewed. Individual nodules and recommendations may be reporte d in accordance with TI-RADS system as designated by the 2017 ACR White Paper TI-RADS committee. Comp arison is made to prior examination from 11/18/2020, 09/04/2016. FINDINGS: The right thyroid lobe measures 8.4 x 6.1 x 4.4 cm, the left measuring 11.7 x 5.3 x 4.9 cm, dimension s are severely enlarged, overall not significantly changed compared to last year but increased compar ed to 2015. Again there are multiple thyroid nodules, up to 3.6 cm on the right and 5.2 cm on the lef t. Typically biopsied not effective for numerous thyroid nodules in absence of lymphadenopathy. IMPRESSION: Multinodular goiter. Reviewed, dictated and finalized at location B. IMPRESSION: Multinodular goiter.
== END 2022-02-01 10:08 | disposition home or self-care (01) ==
PROVIDERS: PCP Internal Medicine; Visit Provider Internal Medicine
DX: E04.2 Nontoxic multinodular goiter (principal)
CPT/HCPCS: 76536

== ENCOUNTER 2022-04-28 09:27 | Outpatient (CLI) | payer MEDICARE, SELFPAY ==
[2022-04-28 14:12] LABS: Creatinine Urine 284.7 mg/dL; Total Protein Urine Random 23 mg/dL; Ur Ttl Prot Creatinine Ratio 0.08 mg/mg (0-0.20)
[2022-04-28 14:18] LABS: Anion Gap 5 mmol/L (8-16); Blood Urea Nitrogen 17 mg/dL (9-20); Calcium 9.2 mg/dL (8.4-10.2); Carbon Dioxide 29 mmol/L (22-30); Chloride 105 mmol/L (98-107); Estimated Glomerular Filt Rate 50; Glucose 169 mg/dL (65-110); Phosphorus 3.3 mg/dL (2.5-4.5); Potassium 4.3 mmol/L (3.4-5.0); Sodium 139 mmol/L (137-145)
[2022-04-28 14:33] LABS: Parathyroid Intact 65.4 pg/mL (7.5-53.5)
[2022-04-28 14:38] LABS: Vitamin D 25 Hydroxy 51.1 ng/mL
== END 2022-04-28 09:28 | disposition home or self-care (01) ==
LOC: ANHLAB 09:29
PROVIDERS: PCP Internal Medicine; Visit Provider Internal Medicine Nephrology
DX: N18.31 Chronic kidney disease, stage 3a (principal); E11.29 Type 2 diabetes mellitus with other diabetic kidney complication; Z90.5 Acquired absence of kidney; E55.9 Vitamin D deficiency, unspecified
CPT/HCPCS: 36415; 80069; 82306; 82570; 83970; 84156

== ENCOUNTER 2022-07-27 10:01 | Outpatient (CLI) | payer MEDICARE, SELFPAY ==
[2022-07-27 10:57] LABS: Alanine Aminotransferase 23 U/L (6-50); Alkaline Phosphatase 68 U/L (38-126); Anion Gap 10 mmol/L (8-16); Aspartate Amino Transferase 29 U/L (17-59); Bilirubin,Total 0.3 mg/dL (0.2-1.3); Blood Urea Nitrogen 17 mg/dL (9-20); Carbon Dioxide 25 mmol/L (22-30); Chloride 103 mmol/L (98-107); Cholesterol 147 mg/dL (0-200); Estimated Glomerular Filt Rate 50; Glucose 117 mg/dL (65-110); HDL Direct 40 mg/dL; Potassium 4.5 mmol/L (3.4-5.0); Sodium 138 mmol/L (137-145); Triglycerides 119 mg/dL (<150)
[2022-07-27 11:10] LABS: LDL Cholesterol Direct 76 mg/dL
== END 2022-07-27 10:02 | disposition home or self-care (01) ==
LOC: ANHLAB 10:03
PROVIDERS: PCP Internal Medicine; Visit Provider Nurse Practitioner
DX: E11.9 Type 2 diabetes mellitus without complications (principal); E78.5 Hyperlipidemia, unspecified
CPT/HCPCS: 36415; 80053; 80061; 83036

== ENCOUNTER 2022-07-28 15:02 | Outpatient (CLI) | payer MEDICARE, SELFPAY ==
[2022-07-28 15:24] LABS: WBC Urine 0-3 /hpf
[2022-07-28 15:27] LABS: Appearance Urine Clear (Clear); Bilirubin Urine Negative (Negative); Blood Urine Negative (Negative); Color Urine Yellow (Yellow); Glucose Urine UA 3+ mg/dL (Negative); Ketones Urine Negative (Negative); Leukocyte Esterase Ur Negative LEU/UL (Negative); Nitrate Urine Negative (Negative); Protein Urine Negative (Negative); Specific Grav Ur 1.015 (1.001-1.035); Urobilinogen Urine 0.2 mg/dL (<2.0); pH Urine 6.5 (5.0-9.0)
[2022-07-28 15:30] LABS: Add Urine Microscopic? YES
== END 2022-07-28 15:03 | disposition home or self-care (01) ==
PROVIDERS: PCP Internal Medicine; Visit Provider Nurse Practitioner
DX: Z00.00 Encounter for general adult medical examination without abnormal findings (principal)
CPT/HCPCS: 81001

== ENCOUNTER 2022-12-27 13:47 | Outpatient (CLI) | payer MEDICARE, SELFPAY ==
[2022-12-27 14:52] LABS: Albumin Level 3.9 g/dL (3.5-5.1); Anion Gap 6 mmol/L (8-16); Blood Urea Nitrogen 15 mg/dL (9-20); Calcium 8.8 mg/dL (8.4-10.2); Carbon Dioxide 27 mmol/L (22-30); Chloride 107 mmol/L (98-107); Estimated Glomerular Filt Rate 59; Glucose 129 mg/dL (65-110); Phosphorus 2.9 mg/dL (2.5-4.5); Potassium 4.5 mmol/L (3.4-5.0); Sodium 140 mmol/L (137-145)
[2022-12-27 15:00] LABS: Creatinine Urine 51.1 mg/dL; Total Protein Urine Random 14 mg/dL; Ur Ttl Prot Creatinine Ratio 0.27 mg/mg (0-0.20)
== END 2022-12-27 13:48 | disposition home or self-care (01) ==
LOC: ANHLAB 13:51
PROVIDERS: PCP Internal Medicine; Visit Provider Internal Medicine Nephrology
DX: N18.31 Chronic kidney disease, stage 3a (principal); Z90.5 Acquired absence of kidney
CPT/HCPCS: 36415; 80069; 82570; 84156

== ENCOUNTER 2023-01-22 08:27 | Outpatient (CLI) | payer MEDICARE, SELFPAY ==
[2023-01-22 09:12] LABS: INR 1.1; Partial Thromboplastin Time 25.6 SECONDS (22.3-36.8); Prothrombin Time 13.6 Seconds (11.1-14.7)
== END 2023-01-22 08:28 | disposition home or self-care (01) ==
PROVIDERS: Anesthesiology; PCP Internal Medicine; Visit Provider Urology
DX: N18.31 Chronic kidney disease, stage 3a (principal); Z01.818 Encounter for other preprocedural examination
CPT/HCPCS: 36415; 85610; 85730

== ENCOUNTER 2023-01-25 01:39 | Day surgery (SDC) | payer MEDICARE, SELFPAY ==
--- NOTE | 2023-01-16 09:01 | PM.HPGS ---
History of Present Illness History of Present Illness Consent: Risks, benefits, and alternatives have been discussed and questions answered. Patient agrees to proceed with procedure. Chief complaint: Hx of Urethral Stricture Narrative: Buck Givens is a 82 year old male who is status post brachytherapy in December 2010 for prostate cancer. 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 He was recently seen for marked obstructive voiding symptoms. Although his residual volume was low cystoscopy showed a tight bulbous urethral stricture. I was unable to adequately dilate this in the office and he presents today for cystoscopy with urethral dilatation. He is aware the risk including, but not limited to, recurrent stricture, urethral injury necessitating an indwelling catheter for a period of time. Review of Systems Cardiovascular: Cardiovascular: Denies chest pain, Denies lightheadedness, Denies palpitations and Denies dyspnea Respiratory: Respiratory: Denies dyspnea Gastrointestinal: Gastrointestinal: Denies diarrhea, Denies nausea and Denies vomiting Genitourinary: Genitourinary: Denies hematuria and Denies dysuria Endocrine: Endocrine: Denies palpitations [facility] Past Medical History Medical History CKD stage 3 due to type 2 diabetes mellitus Essential hypertension Mixed hyperlipidemia Type 2 diabetes mellitus with hyperglycemia Family History Family History Sibling Family history of malignant neoplasm Family history of heart disease in male family member before age 55 Diabetes mellitus Hypertension Heart disease Father Family history of diabetes mellitus in first degree relative Family history of heart disease in male family member before age 55 Diabetes mellitus Family history of cardiovascular disease, Onset Age: 76 Hypertension Heart disease Mother Family history of diabetes mellitus in first degree relative Family history of heart disease in male family member before age 55 Diabetes mellitus Hypertension Family history of cardiovascular disease, Onset Age: 77 Heart disease Social History Social History (Updated 01/09/23 @ 15:20 by Carli Barajas MD) Smoking status: Never smoker Second hand tobacco smoke exposure: No Alcohol intake: never Substance use: never Substance use type: does not use Lack of Transportation: No Lack of Food: Never True Current Housing: I Have Housing Concerned About Future Housing: No Difficulty Paying Gas/Electric Bills: YES Difficulty Paying for Meds: No Currently Unemployed: No Education: Master's Degree or Higher Difficulty w/ Childcare or Family Care: No Living arrangements: alone Gender identity (if verbalized by the patient): Male Spiritual care concerns: No Meds Home Medications and Allergies Home Medications Medication Instructions Recorded Confirmed Type calcium pantothenate 500 mg tablet 500 mg PO DAILY 11/07/19 01/09/23 History fluticasone propionate 50 2 spray intranasal DAILY 11/07/19 01/09/23 History mcg/actuation nasal spray,suspension (Flonase Allergy Relief) leuprolide (3 month) 11.25 mg (3 11.25 mg IM [id number] 11/07/19 08/04/22 History month) intramuscular syringe kit (Lupron Depot) mecobalamin (vitamin B12) 1,000 1,000 mcg sublingual DAILY 11/07/19 01/09/23 History mcg disintegrating tablet,sublingual aspirin 81 mg tablet,delayed 81 mg PO DAILY #1 tablet 12/24/20 01/09/23 Rx release losartan 25 mg tablet 25 mg PO QAM #90 tabs 07/11/22 01/09/23 Rx ezetimibe 10 mg-simvastatin 80 mg 1 tablet PO DAILY #90 tabs 12/04/22 01/09/23 Rx tablet allopurinol 100 mg tablet 100 mg PO DAILY #90 tabs 12/20/22 01/09/23 Rx dapagliflozin 5 mg tablet (Farxiga) 5 mg PO QAM #90 tabs 12/28/22 01/09/23 Rx Aller
[2023-01-17 11:23] VITALS: BMI 25.7
--- NOTE | 2023-01-17 11:40 | PC.NURSE ---
Report to the Outpatient Waiting Room, entrance under the green pavilion located off [facility], at time __11:45AM on date __01/25/23 . Planned Procedure Time: __1:45PM . Time changes happen often and if your time is changed the preop area will call you the afternoon before. - You and your visitor will be asked to self-screen and do not enter if you have any COVID symptoms. - Only one visitor is requested with a max of two and NO children visitors are allowed at this time. - The patient visitor may be requested to leave or wait in car when not with patient due to distancing restrictions. - A mask is optional within the hospital at this time. Patients may have clear liquids (water, carbonated beverages, clear teas, apple juice) until 3 hours prior to surgery with a maximum of 20 ounces. - No food from midnight until time of surgery Take the following medications with a SIP of water the morning of surgery: ___FLONASE NEEDED DO NOT STOP ANY OF YOUR OTHER PRESCRIPTION MEDICATIONS PRIOR TO SURGERY ?EXCEPT THE FOLLOWING Medications to discontinue per physician ___HOLD ASPIRIN 7 DAYS PRE-OP PER DR WEBB(PER PATIENT)____ Date to take last dose___01/18/23 Please no make-up, nail slovak, hairspray, perfume, deodorant, or body powder the day of surgery. No jewelry (including any body piercings) or valuables the day of surgery, leave them at home. Please take a shower or bath the night before, or the morning of, surgery with an antibacterial soap. Wear comfortable, loose fitting clothing. Children are encouraged to wear pajamas. - Jewelry must be removed prior to entering the operating room. Rings and piercings that are not removed may be cut off. - The hospital will not accept responsibility for valuables. - Please leave all valuables, including medications, at home the day of surgery. If you are going home after surgery, a licensed racecar driver must drive you home. - NO public transportation without another adult if you receive anesthesia. - We recommend that an adult stay with you for 24 hours following discharge. - We also recommend that you do not drive, make important decision, drink alcoholic beverages, or take any drugs that were not prescribed by your health care provider for at least 24 hours after your discharge time. Follow any additional instructions given to you from your surgeon. If you or anyone in your household have experienced Covid symptoms in the past week, please notify your surgeon or the nurse liaison at the phone number below for possible testing. Telephone instructions given to ___PATIENT and asked if any additional questions and then verbalized understanding. Patient advised to call surgeon office or pre surgery nurse liaison [phone] if any additional questions.
--- NOTE | 2023-01-25 06:27 | WPDHPUPDATE1 ---
History and Physical Update Update Date/Time: 01/25/23 06:27 History and Physical has been reviewed, including an updated exam of the patient. There are NO changes in the patient's condition. Risks, benefits, and alternatives have been discussed and questions answered. Patient agrees to proceed with procedure.
[2023-01-25 11:37] VITALS: BP 143/72; PULSE 74; RESP 16; TEMP 36.3; O2SAT 100
[2023-01-25 12:05] LABS: Glucose Point of Care 119 mg/dl (65-105)
--- NOTE | 2023-01-25 13:13 | WPDANESEPPF ---
Anes - Initial Pre Proc Eval Procedure: Operation Date: 01/25/23 13:45 Proposed Procedures p Cystoscopy, Urethral Dilatation - Artemio Alexandra MD Date/Time: 01/25/23 13:13 Surgeon: Artemio Alexandra MD Pre Op Diagnosis: Hx of Urethral Stricture Patient Data Age: 82 Gender: M Height: 1.88 m Weight: 85.2 kg Last Vital Signs Temp 36.3 C L 01/25/23 11:37 Pulse 74 01/25/23 11:37 Resp 16 01/25/23 11:37 BP 143/72 H 01/25/23 11:37 Pulse Ox 100 01/25/23 11:37 O2 Del Method Room Air 01/25/23 11:37 Allergies Allergy/AdvReac Type Severity Reaction Status Date / Time adhesive tape Allergy Severe VERY LARGE Verified 01/25/23 12:25 BLISTERS morphine AdvReac Severe SEVERE N/V Verified 01/25/23 12:25 WITH EVERY DOSE Home Medications Medication Instructions Recorded Confirmed Type fluticasone propionate 50 2 spray intranasal DAILY PRN 11/07/19 01/25/23 History mcg/actuation nasal Congestion spray,suspension (Flonase Allergy Relief) leuprolide (3 month) 11.25 mg (3 11.25 mg IM [id number] 11/07/19 01/25/23 History month) intramuscular syringe kit (Lupron Depot) aspirin 81 mg tablet,delayed 81 mg PO DAILY #1 tablet 12/24/20 01/25/23 Rx release losartan 25 mg tablet 25 mg PO QAM #90 tabs 07/11/22 01/25/23 Rx ezetimibe 10 mg-simvastatin 80 mg 1 tablet PO DAILY #90 tabs 12/04/22 01/25/23 Rx tablet allopurinol 100 mg tablet 100 mg PO DAILY #90 tabs 12/20/22 01/25/23 Rx dapagliflozin 5 mg tablet (Farxiga) 5 mg PO QAM #90 tabs 12/28/22 01/25/23 Rx calcium 500 mg tablet 500 mg PO DAILY 01/17/23 01/25/23 History cyanocobalamin (vitamin B-12) 1,000 mcg PO DAILY 01/17/23 01/25/23 History 1,000 mcg capsule Laboratory Tests 01/25/23 12:01 POC Capillary Glucose 119 mg/dl H mg/dl (65-105) Patient hx anesthesia problems: none Family hx anesthesia problems: none Results Review: All pre-operative results and documents have been reviewed as part of the pre-operative evaluation. [facility] Past Medical History Medical History CKD stage 3 due to type 2 diabetes mellitus Essential hypertension Mixed hyperlipidemia Type 2 diabetes mellitus with hyperglycemia Family History Family History Sibling Family history of malignant neoplasm Family history of heart disease in male family member before age 55 Diabetes mellitus Hypertension Heart disease Father Family history of diabetes mellitus in first degree relative Family history of heart disease in male family member before age 55 Diabetes mellitus Family history of cardiovascular disease, Onset Age: 76 Hypertension Heart disease Mother Family history of diabetes mellitus in first degree relative Family history of heart disease in male family member before age 55 Diabetes mellitus Hypertension Family history of cardiovascular disease, Onset Age: 77 Heart disease Social History Social History Smoking status: Never smoker Second hand tobacco smoke exposure: No Alcohol intake: never Substance use: never Substance use type: does not use Lack of Transportation: No Lack of Food: Never True Current Housing: I Have Housing Concerned About Future Housing: No Difficulty Paying Gas/Electric Bills: YES Difficulty Paying for Meds: No Currently Unemployed: No Education: Master's Degree or Higher Difficulty w/ Childcare or Family Care: No Living arrangements: alone Gender identity (if verbalized by the patient): Male Spiritual care concerns: No Anes - Eval Final PreProcedure Day of Procedure 01/25/23 13:13 Patient weight: normal Heart: regular rate and rhythm Lungs: clear to auscultation Airway: Mallampati scale class II Neurological: other (alert) Last o
[2023-01-25] MEDS: ceFAZolin 2 GM/D5W 50 ML 2 GM/50 ML BAG IVPB (13:56)
[2023-01-25] MEDS: LIDOCAINE HCL 2% GEL UROJET 10 ML PKG MUCOUS MEM (14:17)
--- NOTE | 2023-01-25 14:26 | W.PM.PROC2 ---
Procedure Note - Detailed Date of Procedure 01/25/23 Pre-op Diagnosis Hx of Urethral Stricture Post-op Diagnosis Other ( bladder neck contracture) Procedure Performed cystoscopy with urethral dilatation Surgeon Artemio Alexandra MD Anesthesia MAC Description of Procedure Patient brought the operative suite was prepped draped in routine sterile fashion while in a dorsal lithotomy position. 2% xylocaine jelly was introduced intraurethrally and systemic sedation is administered per the anesthesia department. Cystoscopy is undertaken with a 19 F rigid cystoscope. He has a very tight bladder neck contracture. I placed a 0.035 in superstiff wire into the bladder and dilated from 12-22 F using urethral dilators. This was a dense stricture so I opted to leave a catheter in over the weekend. Scopes and wires removed and he was taken recovery room good condition. Drains Yes Complications No immediate complications Condition Stable
[2023-01-25 14:32] VITALS: BP 91/56; PULSE 80; RESP 16; O2SAT 95
[2023-01-25] MEDS: LACTATED RINGERS 1,000 ML 30 ML IV CONT (14:32)
[2023-01-25 14:45] VITALS: BP 138/81; PULSE 73; RESP 13; O2SAT 100
--- NOTE | 2023-01-25 15:00 | SUR.PHASEI ---
Patient insisted he had to have a BM now. So RN took to the bathroom in outpatient at [phone].
[2023-01-25 15:05] VITALS: BP 166/92
[2023-01-25 15:15] LABS: Glucose Point of Care 86 mg/dl (65-105)
[2023-01-25 15:35] VITALS: BP 144/72
== END 2023-01-25 16:10 | disposition home or self-care (01) ==
PROVIDERS: PCP Internal Medicine; Visit Provider Urology
PROC: 0T7D8ZZ Dilation of Urethra, Via Natural or Artificial Opening Endoscopic (ICD-10-PCS; CPT 52281; principal; 2023-01-25 13:45)
DX: N32.0 Bladder-neck obstruction (principal); I12.9 Hypertensive chronic kidney disease with stage 1 through stage 4 chronic kidney disease, or unspecified chronic kidney disease; E11.22 Type 2 diabetes mellitus with diabetic chronic kidney disease; N18.30 Chronic kidney disease, stage 3 unspecified; E78.2 Mixed hyperlipidemia; Z79.818 Long term (current) use of other agents affecting estrogen receptors and estrogen levels; Z79.84 Long term (current) use of oral hypoglycemic drugs; Z79.82 Long term (current) use of aspirin; Z85.46 Personal history of malignant neoplasm of prostate
CPT/HCPCS: 52281; 82948; C1769; J0690; J2704; J3010; J7120

== ENCOUNTER 2023-01-25 19:26 | Observation (INO) | payer MEDICARE, SELFPAY ==
[2023-01-25 19:28] VITALS: BP 172/71; PULSE 95; RESP 20; TEMP 36.1; O2SAT 100
--- NOTE | 2023-01-25 19:45 | PC.NURSE ---
Irrigated pt indwelling catheter, numerous clots pulled out. drained approx 500ml after removing clots. Bright red blood/urine
--- NOTE | 2023-01-26 01:04 | ED.GENADULT ---
HPI - General Adult General Chief complaint: Urogenital-Male Stated complaint: catheter not draining Time Seen by Provider: 01/25/23 23:48 History of Present Illness HPI narrative: this is an 82-year-old male presenting ED on POD 1 from a urethral dilation performed by . After the procedure patient was discharged with a catheter in place. 1st it was draining reddish urine but then it stopped draining and the patient developed severe abdominal discomfort. The catheter was flushed multiple times which relieved the patient's symptoms but then he quickly became clogged again. Patient denies any other complaints this time. Related Data Home Medications Medication Instructions Recorded Confirmed fluticasone propionate 50 2 spray intranasal DAILY PRN 11/07/19 01/25/23 mcg/actuation nasal Congestion spray,suspension (Flonase Allergy Relief) leuprolide (3 month) 11.25 mg (3 11.25 mg IM [id number] 11/07/19 01/25/23 month) intramuscular syringe kit (Lupron Depot) calcium 500 mg tablet 500 mg PO DAILY 01/17/23 01/25/23 cyanocobalamin (vitamin B-12) 1,000 mcg PO DAILY 01/17/23 01/25/23 1,000 mcg capsule Allergies Allergy/AdvReac Type Severity Reaction Status Date / Time adhesive tape Allergy Severe VERY LARGE Verified 01/25/23 12:25 BLISTERS morphine AdvReac Severe SEVERE N/V Verified 01/25/23 12:25 WITH EVERY DOSE PMFSH Past Medical History Medical History CKD stage 3 due to type 2 diabetes mellitus Essential hypertension Mixed hyperlipidemia Type 2 diabetes mellitus with hyperglycemia Family History Family History Sibling Family history of malignant neoplasm Family history of heart disease in male family member before age 55 Diabetes mellitus Hypertension Heart disease Father Family history of diabetes mellitus in first degree relative Family history of heart disease in male family member before age 55 Diabetes mellitus Family history of cardiovascular disease, Onset Age: 76 Hypertension Heart disease Mother Family history of diabetes mellitus in first degree relative Family history of heart disease in male family member before age 55 Diabetes mellitus Hypertension Family history of cardiovascular disease, Onset Age: 77 Heart disease Social History Social History Smoking status: Never smoker Second hand tobacco smoke exposure: No Alcohol intake: never Substance use: never Substance use type: does not use Lack of Transportation: No Lack of Food: Never True Current Housing: I Have Housing Concerned About Future Housing: No Difficulty Paying Gas/Electric Bills: YES Difficulty Paying for Meds: No Currently Unemployed: No Education: Master's Degree or Higher Difficulty w/ Childcare or Family Care: No Living arrangements: alone Gender identity (if verbalized by the patient): Male Spiritual care concerns: No Exam Narrative: APPEARANCE: No apparent distress. Head: atraumatic. EYES: EOMI, NOSE: Atraumatic NECK: Trachea midline RESPIRATORY: No increased rate of breathing Clear to auscultation CARDIOVASCULAR: RRR, ABDOMINAL: Non-distended MUSCULOSKELETAl: No obvious deformities : Painting in place. Leg bag draining red urine w/ clots. NEURO: Alert. Moving 4/4 extremities SKIN:: Warm, dry. Normal color PSYCHIATRIC: Normal affect Course Vital Signs Vital signs: Vital Signs Temperature 97 F L 01/25/23 19:28 Pulse Rate 95 01/25/23 19:28 Respiratory Rate 20 01/25/23 19:28 Blood Pressure 172/71 H 01/25/23 19:28 Pulse Oximetry 100 01/25/23 19:28 Oxygen Delivery Room Air 01/25/23 19:28 Temperature 97 F L 01/25/23 19:28 Pulse Rate 95 01/25/23 19:28 Respiratory Rate 20 01/25/23 19:28 Blood Pressur
[2023-01-26 02:17] LABS: Appearance Urine Clear (Clear); Bilirubin Urine Negative (Negative); Blood Urine 3+ (Negative); Color Urine Red (Yellow); Glucose Urine UA Negative (Negative); Ketones Urine Negative (Negative); Leukocyte Esterase Ur Trace LEU/UL (Negative); Nitrate Urine Negative (Negative); Protein Urine 2+ mg/dL (Negative); Urobilinogen Urine 0.2 mg/dL (<2.0); pH Urine 5.5 (5.0-9.0)
[2023-01-26 02:19] LABS: Add Urine Microscopic? YES; RBC Urine 51-100 /hpf (0-2)
--- NOTE | 2023-01-26 02:23 | PM.IMHP ---
H&P: HPI History of Present Illness Date/Time: 01/26/23 02:23 Chief Complaint: Hematuria Narrative: This is an 82-year-old male past medical history significant for type diabetes mellitus, prostate CA, hypertension, chronic kidney disease. Patient is status post urethral stricture dilatation was sent home with Painting bag comes back due to passing blood clots and pelvic discomfort. Patient denies any fevers, rigors, chills, nausea, vomiting, diarrhea. Patient is been placed in observation for further evaluation management and treatment. Review of Systems Review of Systems: Passing blood clots Constitutional: Constitutional: Denies chills, Denies fever(s), Denies malaise, Denies night sweats and Denies weakness Eyes: Eyes: Denies change in vision ENT: Denies dysphagia and Denies odynophagia Cardiovascular: Cardiovascular: Denies chest pain, Denies lightheadedness and Denies palpitations Respiratory: Respiratory: Denies chest congestion, Denies excessive phlegm production, Denies pain on inspiration and Denies dyspnea Gastrointestinal: Gastrointestinal: Reports abdominal pain, Denies dyspepsia, Denies heartburn, Denies diarrhea, Denies nausea and Denies vomiting Genitourinary: Genitourinary: Reports hematuria, Denies dysuria and Denies flank pain Musculoskeletal: Musculoskeletal: Denies back pain, Denies myalgias and Denies muscle weakness Integumentary/Breasts: Skin/Breast: Denies rash Neurologic: Denies focal weakness and Denies Sensory deficit (Neuro) Psychiatric: Psychiatric: Reports no additional psychiatric complaints and Reports as per HPI Endocrine: Endocrine: Denies cold intolerance, Denies flushing, Denies heat intolerance, Denies polyphagia, Denies polydipsia and Denies palpitations Hematologic/Lymphatic: Hematologic/Lymphatic: Reports no additional hematologic/lymphatic complaints and Reports as per HPI Allergic/Immunologic: Allergic/Immunologic: Reports no additional allergic/immunologic complaints and Reports as per HPI PMFSH Past Medical History Medical History CKD stage 3 due to type 2 diabetes mellitus Essential hypertension Mixed hyperlipidemia Type 2 diabetes mellitus with hyperglycemia Family History Family History Sibling Family history of malignant neoplasm Family history of heart disease in male family member before age 55 Diabetes mellitus Hypertension Heart disease Father Family history of diabetes mellitus in first degree relative Family history of heart disease in male family member before age 55 Diabetes mellitus Family history of cardiovascular disease, Onset Age: 76 Hypertension Heart disease Mother Family history of diabetes mellitus in first degree relative Family history of heart disease in male family member before age 55 Diabetes mellitus Hypertension Family history of cardiovascular disease, Onset Age: 77 Heart disease Social History Social History Smoking status: Never smoker Second hand tobacco smoke exposure: No Alcohol intake: never Substance use: never Substance use type: does not use Lack of Transportation: No Lack of Food: Never True Current Housing: I Have Housing Concerned About Future Housing: No Difficulty Paying Gas/Electric Bills: YES Difficulty Paying for Meds: No Currently Unemployed: No Education: Master's Degree or Higher Difficulty w/ Childcare or Family Care: No Living arrangements: alone Gender identity (if verbalized by the patient): Male Spiritual care concerns: No Meds Home Medications and Allergies Home Medications Medication Instructions Recorded Confirmed Type fluticasone propionate 50 2 spray intranasal DAILY PRN 11/07/19 01/25/23 History mcg/actuation nasal Congestion spray,suspension
[2023-01-26 03:20] VITALS: BP 157/74; PULSE 95; RESP 16; TEMP 36.1; O2SAT 99
--- NOTE | 2023-01-26 04:03 | ADMGEN ---
This patient, Buck Givens, was admitted to [facility] Surg Room 304-02. Patient/family oriented to hospital policies and general routines including ID bracelet, bed and alarms, visiting hours, pain management, procedures, bathroom and other care routines, personal items, smoking policy, room service/diet, and visiting hours. Information on how to activate the Rapid Response Team has been discussed. Patient/Family are encouraged to report perceived risks to care and to ask questions if they do not understand what they are told or what they should do.
[2023-01-26] MEDS: LOSARTAN POTASSIUM 25 MG TABLET PO (04:33)
[2023-01-26] MEDS: ACETAMINOPHEN 500 MG TABLET 1000 MG PO (04:33)
[2023-01-26] MEDS: CEPHALEXIN 500 MG CAPSULE PO (06:23)
[2023-01-26] MEDS: WATER FOR IRRIGATION, STERILE 1,000 ML BOTTLE 1000 ML (06:24)
--- NOTE | 2023-01-26 06:40 | WPDURCON ---
Assessment and Plan Assessment and plan (1) Hematuria: Code(s): R31.9 - Hematuria, unspecified Status: Acute (2) Acute urinary retention: Code(s): R33.8 - Other retention of urine Status: Acute Assessment and Plan: Transient hematuria with clot retention after dilatation of a bladder neck contracture/bulbous urethral stricture. This hematuria. To be transient and the clots were relatively small and easily irrigated from his bladder. The bladder continues to irrigate easily this morning without signs of retention. Continue to watch the patient through the day and encouraged vigorous fluid intake. Do not plan any intervention at this time. Urology Consult Note HPI Date Seen: 01/26/23 Requesting Physician: Chel West MD Primary Care Provider: Walter Don MD Consult Narrative Narrative: Buck Givens is a 82 year old male well known to me with a history of prostate cancer status post brachytherapy in the remote past. More recently he has had trouble with recurrent urethral strictures. Just yesterday underwent cystoscopy with dilatation of a bladder neck contracture. This was a tight stricture requiring significant intervention with urethral dilatation. He was discharged with an indwelling 18 F catheter but presented to the emergency department later that night with transient hematuria and small clots obstructing the catheter. This was irrigated easily without need for catheter change in the ER. He was admitted for observation. Overnight catheter is flowing freely and this morning it irrigates well without significant clots. Review of Systems Cardiovascular: Cardiovascular: Denies chest pain, Denies lightheadedness, Denies palpitations and Denies dyspnea Respiratory: Respiratory: Denies dyspnea Gastrointestinal: Gastrointestinal: Denies diarrhea, Denies nausea and Denies vomiting Genitourinary: Genitourinary: Denies hematuria and Denies dysuria Endocrine: Endocrine: Denies palpitations [facility] Past Medical History Medical History CKD stage 3 due to type 2 diabetes mellitus Essential hypertension Mixed hyperlipidemia Type 2 diabetes mellitus with hyperglycemia Family History Family History Sibling Family history of malignant neoplasm Family history of heart disease in male family member before age 55 Diabetes mellitus Hypertension Heart disease Father Family history of diabetes mellitus in first degree relative Family history of heart disease in male family member before age 55 Diabetes mellitus Family history of cardiovascular disease, Onset Age: 76 Hypertension Heart disease Mother Family history of diabetes mellitus in first degree relative Family history of heart disease in male family member before age 55 Diabetes mellitus Hypertension Family history of cardiovascular disease, Onset Age: 77 Heart disease Social History Social History Smoking status: Never smoker Second hand tobacco smoke exposure: No Alcohol intake: never Substance use: never Substance use type: does not use Lack of Transportation: No Lack of Food: Never True Current Housing: I Have Housing Concerned About Future Housing: No Difficulty Paying Gas/Electric Bills: No Difficulty Paying for Meds: No Currently Unemployed: No Education: Master's Degree or Higher Difficulty w/ Childcare or Family Care: No Living arrangements: alone Gender identity (if verbalized by the patient): Male Spiritual care concerns: No Meds Home Medications and Allergies Home Medications Medication Instructions Recorded Confirmed Type fluticasone propionate 50 2 spray intranasal DAILY PRN 11/07/19 01/26/23 History mcg/actuation nasal Congestion spray,surinder
[2023-01-26 08:05] LABS: Basophils Percent Auto 0.2 % (0.2-1.2); Eosinophils Absolute Auto 0.1 K/mm3 (0-0.3); Eosinophils Percent Auto 0.4 % (0-4.4); Hematocrit 40.5 % (42.0-52.0); Hemoglobin 13.2 g/dL (14.0-18.0); Immature Granulocyte Absolute 0.05 K/mm3 (0.00-0.031); Immature Granulocyte Percent A 0.3 % (0-0.5); Lymphocytes Absolute Auto 1.59 K/mm3 (0.9-3.2); Lymphocytes Percent Auto 10.8 % (18.3-44.2); Mean Corpuscular HGB Conc 32.6 g/dl (32-36); Mean Corpuscular Hemoglobin 29.7 pg (26-34); Monocytes Absolute Auto 1.2 K/mm3 (0.1-0.6); Monocytes Percent Auto 8.2 % (2.6-8.5); Neutrophils Absolute Auto 11.7 K/mm3 (1.3-6.7); Neutrophils Percent Auto 80.1 % (45.5-73.1); Platelet Count Result 207 k/mm3 (150-375); Red Blood Count 4.45 M/mm3 (4.6-6.20); Red Cell Distribution Width 12.4 % (11.5-14.5); White Blood Count 14.7 K/mm3 (4.5-10.0)
[2023-01-26 08:08] LABS: Anion Gap 7 mmol/L (8-16); Blood Urea Nitrogen 17 mg/dL (9-20); Calcium 8.8 mg/dL (8.4-10.2); Carbon Dioxide 26 mmol/L (22-30); Chloride 104 mmol/L (98-107); Estimated Glomerular Filt Rate > 60; Glucose 143 mg/dL (65-110); Potassium 4.5 mmol/L (3.4-5.0); Sodium 137 mmol/L (137-145)
[2023-01-26] MEDS: ASPIRIN 81 MG ENTERIC TABLET PO (08:42)
[2023-01-26] MEDS: CALCIUM CARBONATE (OSCAL) 500 MG TABLET PO (08:42)
[2023-01-26] MEDS: CYANOCOBALAMIN 1,000 MCG TABLET 1000 MCG PO (08:42)
[2023-01-26] MEDS: allopurinoL 100 MG TABLET PO (08:42)
[2023-01-26] MEDS: EMPAGLIFLOZIN 10 MG TABLET PO (08:50)
--- NOTE | 2023-01-26 11:55 | PM.IMPN ---
Progress Note: A&P Assessment and Plan (1) Acute urinary retention: Code(s): R33.8 - Other retention of urine Status: Acute Assessment and Plan: Place in observation Painting in Urology consult Flush as needed (2) Hematuria: Code(s): R31.9 - Hematuria, unspecified Status: Acute Assessment and Plan: Likely secondary to procedure Continue to monitor (3) Stage 3a chronic kidney disease: Code(s): N18.31 - Chronic kidney disease, stage 3a Status: Acute Assessment and Plan: Continue to monitor Daily BMP (4) Diabetes: Code(s): E11.9 - Type 2 diabetes mellitus without complications Status: Acute Assessment and Plan: Orally controlled Subjective Date/time seen: 01/26/23 11:55 No complaints Exam Narrative: Patient is laying in a stretcher Const: General: comfortable, no acute distress, well developed, alert, awake, average body habitus and other (Well-appearing) Nutritional Appearance: average body habitus Orientation/consciousness: patient oriented x3 HENMT: Head: normal to inspection, normocephalic and atraumatic Ears: hearing grossly normal bilaterally Face/Nose/Sinus: normal facial exam Face and sinus: normal facial exam Eyes: General: appearance normal, both eyes and all related structures Pupils: Equal, round and reactive pupils present EOM: EOMs intact bilaterally Neck: Neck: full ROM, no lymphadenopathy and no JVD Thyroid: thyroid normal Lymphatic: no lymphadenopathy noted Resp: Effort & Inspection: normal respiratory effort and able to speak in complete sentences Auscultation: clear to auscultation bilaterally Cardio: Jugular venous distension: no JVD Rate: regular rate Rhythm: regular rhythm Heart sounds: S1 normal heart sound present and S2 normal heart sound present : General: Yes other (Blood is present in the urethral meatus) Skin: Rashes: no rashes Wounds: no wounds Neuro: General: patient oriented x3, CN's II-XI intact bilaterally and Unable to assess gait Cranial nerves: Yes CN's II-XII intact bilaterally and Yes Equal, round and reactive pupils present Cognition (Neuro): normal cognition Speech: normal speech Gait exam (Neuro): Unable to assess gait Motor exam (neuro): 5/5 motor strength present throughout Sensory Exam: No Sensory deficit (Neuro) Extrem: General: normal to inspection, full ROM, no joint enlargement and no pedal edema Objective Data Vital Signs Vital Signs: Vital Signs - 24 hr 01/25/23 19:28 01/26/23 03:20 01/26/23 08:00 Temperature 97 F L 97 F L Pulse Rate 95 95 Respiratory Rate 20 16 Blood Pressure 172/71 H 157/74 H Pulse Oximetry 100 99 Oxygen Delivery Room Air Room Air Meds/Results Medications: Active Medications Generic Name Dose Route Start Last Admin Trade Name Freq PRN Reason Stop Dose Admin Acetaminophen 1,000 mg 01/26/23 04:12 01/26/23 04:33 Acetaminophen 500 Mg Tablet PO 1,000 mg Q6H PRN Administration Mild Pain (1-3) or Fever Allopurinol 100 mg 01/26/23 09:00 01/26/23 08:42 Allopurinol 100 Mg Tablet PO 100 mg DAILY KIARA Administration Aspirin 81 mg 01/26/23 09:00 01/26/23 08:42 Aspirin 81 Mg Enteric Tablet PO 81 mg DAILY KIARA Administration Calcium Carbonate 500 mg 01/26/23 09:00 01/26/23 08:42 Calcium Carbonate (Oscal) 500 Mg Tablet PO 02/25/23 08:59 500 mg DAILY KIARA Administration Cephalexin HCl 500 mg 01/26/23 06:00 01/26/23 06:23 Cephalexin 500 Mg Capsule PO 500 mg Q8HR KIARA Administration Cyanocobalamin 1,000 mcg 01/26/23 09:00 01/26/23 08:42 Cyanocobalamin 1,000 Mcg Tablet PO 1,000 mcg DAILY KIARA Administration Empagliflozin 10 mg 01/26/23 09:00 01/26/23 08:50 Empagliflozin 10 Mg Tablet PO 10 mg QAM KIARA Administration Fluticasone Propionate 2 spray 01/26/23 04:33 Fluticasone Propionate 0.05% Na Spr 16 Gm Btl (*Bkc) NASAL DAILY PRN Congestion [facility]
[2023-01-26] MEDS: HYOSCYAMINE SULFATE 0.125 MG TABLET SUBLINGUAL ×2 (13:20→17:13)
[2023-01-26 15:00] VITALS: BP 120/65; PULSE 79; RESP 16; TEMP 36.6; O2SAT 100
[2023-01-26] MEDS: LOPERAMIDE HCL 2 MG CAPSULE PO (15:25)
--- NOTE | 2023-01-26 17:39 | WPDUROPN2 ---
Subjective Subjective Date/Time Seen: 01/26/23 17:39 Intermittent hematuria related to intense bladder spasms -> has resolved with Levsin for spasms Review of Systems Cardiovascular: Cardiovascular: Denies chest pain, Denies lightheadedness, Denies palpitations and Denies dyspnea Respiratory: Respiratory: Denies dyspnea Gastrointestinal: Gastrointestinal: Denies diarrhea, Denies nausea and Denies vomiting Genitourinary: Genitourinary: Denies hematuria and Denies dysuria Endocrine: Endocrine: Denies palpitations Exam Const: General: no acute distress Resp: Effort & Inspection: normal respiratory effort GI: Inspection: non-distended GI Palp: No abdominal tenderness and No Guarding due to palpation present (GI) Auscultation: normal bowel sounds Urinary Catheter: Urinary Catheter: patent and draining and urine clear Objective Data Vital Signs Vital Signs: Vital Signs - 24 hr 01/25/23 19:28 01/26/23 03:20 01/26/23 08:00 Temperature 97 F L 97 F L Pulse Rate 95 95 Respiratory Rate 20 16 Blood Pressure 172/71 H 157/74 H Pulse Oximetry 100 99 Oxygen Delivery Room Air Room Air 01/26/23 15:00 Temperature 98 F Pulse Rate 79 Respiratory Rate 16 Blood Pressure 120/65 Pulse Oximetry 100 Oxygen Delivery Meds/Results Medications: Active Medications Generic Name Dose Route Start Last Admin Trade Name Freq PRN Reason Stop Dose Admin Acetaminophen 1,000 mg 01/26/23 04:12 01/26/23 04:33 Acetaminophen 500 Mg Tablet PO 1,000 mg Q6H PRN Administration Mild Pain (1-3) or Fever Allopurinol 100 mg 01/26/23 09:00 01/26/23 08:42 Allopurinol 100 Mg Tablet PO 100 mg DAILY KIARA Administration Aspirin 81 mg 01/26/23 09:00 01/26/23 08:42 Aspirin 81 Mg Enteric Tablet PO 81 mg DAILY KIARA Administration Calcium Carbonate 500 mg 01/26/23 09:00 01/26/23 08:42 Calcium Carbonate (Oscal) 500 Mg Tablet PO 02/25/23 08:59 500 mg DAILY KIARA Administration Cyanocobalamin 1,000 mcg 01/26/23 09:00 01/26/23 08:42 Cyanocobalamin 1,000 Mcg Tablet PO 1,000 mcg DAILY KIARA Administration Empagliflozin 10 mg 01/26/23 09:00 01/26/23 08:50 Empagliflozin 10 Mg Tablet PO 10 mg QAM KIARA Administration Fluticasone Propionate 2 spray 01/26/23 04:33 Fluticasone Propionate 0.05% Na Spr 16 Gm Btl (*Bkc) NASAL DAILY PRN Congestion Hyoscyamine 0.125 mg 01/26/23 13:00 01/26/23 17:13 Hyoscyamine Sulfate 0.125 Mg Tablet SUBLINGUAL 0.125 mg Q4H PRN Administration Bladder Spasm Loperamide HCl 2 mg 01/26/23 14:46 01/26/23 15:25 Loperamide Hcl 2 Mg Capsule PO 2 mg PRN PRN Administration Diarrhea Losartan Potassium 25 mg 01/26/23 09:00 01/26/23 04:33 Losartan Potassium 25 Mg Tablet PO 25 mg DAILY KIARA Administration Non-Formulary Medication 11.25 mg 01/26/23 09:00 Leuprolide (3 Month) [Lupron Depot (3 Month)] IM 02/25/23 08:59 [id number] KIARA Tramadol HCl 50 mg 01/26/23 04:33 Tramadol Hcl (*Crx) 50 Mg Tablet PO Q6H PRN pain 4-6 Labs Labs: Laboratory Results - last 24 hr 01/26/23 01/26/23 01/26/23 01:58 06:09 06:09 WBC 14.7 H RBC 4.45 L Hgb 13.2 L Hct 40.5 L MCV 91.0 MCH 29.7 MCHC 32.6 RDW 12.4 Plt Count 207 MPV 11.0 H Immature Gran % (Auto) 0.3 Neut % (Auto) 80.1 H Lymph % (Auto) 10.8 L [place] % (Auto) 8.2 Eos % (Auto) 0.4 Baso % (Auto) 0.2 Lymph # (Auto) 1.59 [place] # (Auto) 1.2 H Eos # (Auto) 0.1 Baso # (Auto) 0.0 Abs Immat Gran (auto) 0.05 H Absolute Neuts (auto) 11.7 H Absolute Nucleated RBC 0.0 Nucleated RBC % 0.0 Sodium 137 Potassium 4.5 Chloride 104 Carbon Dioxide 26 Anion Gap 7 L BUN 17 Creatinine 1.30 Estim Creat Clear Calc Not Reportable Estimated GFR > 60 Glucose 143 H Calcium 8.8 Urine Color Red H Urine Appearance Clear Urine pH 5.5 Ur Spe
[2023-01-26 21:38] VITALS: BP 139/76; PULSE 83; RESP 16; TEMP 36.2; O2SAT 98
[2023-01-26] MEDS: oxyBUTYnin CHLORIDE XL 5 MG TAB.ER.24 10 MG PO (22:32)
[2023-01-27 04:56] VITALS: BP 121/64; PULSE 91; RESP 16; TEMP 36.4; O2SAT 98
[2023-01-27 08:00] VITALS: PULSE 91; RESP 16; O2SAT 98
[2023-01-27] MEDS: LOSARTAN POTASSIUM 25 MG TABLET PO (08:50)
[2023-01-27] MEDS: allopurinoL 100 MG TABLET PO (08:50)
[2023-01-27] MEDS: CYANOCOBALAMIN 1,000 MCG TABLET 1000 MCG PO (08:50)
[2023-01-27] MEDS: CALCIUM CARBONATE (OSCAL) 500 MG TABLET PO (08:50)
[2023-01-27] MEDS: HYOSCYAMINE SULFATE 0.125 MG TABLET SUBLINGUAL (08:53)
[2023-01-27] MEDS: ASPIRIN 81 MG ENTERIC TABLET PO (09:33)
[2023-01-27] MEDS: EMPAGLIFLOZIN 10 MG TABLET PO (09:34)
--- NOTE | 2023-01-27 12:08 | PM.DS ---
DS: Admitting Diagnosis Discharge Date January 27, 2023 Admitting Diagnosis Urinary retention, hematuria DS: Discharge Diagnosis Discharge Diagnosis (1) Acute urinary retention: Code(s): R33.8 - Other retention of urine Status: Acute Assessment and Plan: Place in observation Painting in Urology consult Flush as needed (2) Hematuria: Code(s): R31.9 - Hematuria, unspecified Status: Acute Assessment and Plan: Likely secondary to procedure Continue to monitor (3) Stage 3a chronic kidney disease: Code(s): N18.31 - Chronic kidney disease, stage 3a Status: Acute Assessment and Plan: Continue to monitor Daily BMP (4) Diabetes: Code(s): E11.9 - Type 2 diabetes mellitus without complications Status: Acute Assessment and Plan: Orally controlled DS: Summary Hospital Course Hospital Course: Patient was admitted for hematuria and urinary retention. Urology was consulted recommended conservative treatment and Painting to remain in. His urine is much clearer today. He can be discharged with Painting and follow up with Urology as an outpatient Time Spent with Patient Time attestation: Total time spent providing and/or coordinating discharge services: Exam Narrative: Patient is laying in a stretcher Const: General: comfortable, no acute distress, well developed, alert, awake, average body habitus and other (Well-appearing) Nutritional Appearance: average body habitus Orientation/consciousness: patient oriented x3 HENMT: Head: normal to inspection, normocephalic and atraumatic Ears: hearing grossly normal bilaterally Face/Nose/Sinus: normal facial exam Face and sinus: normal facial exam Eyes: General: appearance normal, both eyes and all related structures Pupils: Equal, round and reactive pupils present EOM: EOMs intact bilaterally Neck: Neck: full ROM, no lymphadenopathy and no JVD Thyroid: thyroid normal Lymphatic: no lymphadenopathy noted Resp: Effort & Inspection: normal respiratory effort and able to speak in complete sentences Auscultation: clear to auscultation bilaterally Cardio: Jugular venous distension: no JVD Rate: regular rate Rhythm: regular rhythm Heart sounds: S1 normal heart sound present and S2 normal heart sound present : General: Yes other (Blood is present in the urethral meatus) Skin: Rashes: no rashes Wounds: no wounds Neuro: General: patient oriented x3, CN's II-XI intact bilaterally and Unable to assess gait Cranial nerves: Yes CN's II-XII intact bilaterally and Yes Equal, round and reactive pupils present Cognition (Neuro): normal cognition Speech: normal speech Gait exam (Neuro): Unable to assess gait Motor exam (neuro): 5/5 motor strength present throughout Sensory Exam: No Sensory deficit (Neuro) Extrem: General: normal to inspection, full ROM, no joint enlargement and no pedal edema Discharge Plan Discharge Attending physician on discharge: Nahum Plasencia Consulting providers: Artemio Alexandra Discharging Clinician: Nahum Plasencia Patient Disposition: Home, Self-Care Activity: no preference Diet: as tolerated Discharge Instructions: 1. Painting catheter to leg bag / large bag at night. 2. F/U Dr. Alexandra' office to 01/30 [id number] to check catheter. Patient Instructions: Antibiotic Form Stand Alone Forms: General Discharge Information Follow-up/Referrals: Artemio Alexandra MD [Physician] - Discharge Medications: New hyoscyamine sulfate 0.125 mg tablet 0.125 mg PO Q6H PRN (Reason: bladder spasms) Qty: 20 2RF oxybutynin chloride [Ditropan XL] 10 mg tablet extended release 24hr 10 mg PO .at bedtime Qty: 20 0RF Continued aspirin 81 mg tablet,delayed release (DR/EC) 81 mg PO DAILY Qty: 1 0RF Hold Instructions: Resume on 01/27/23. calcium 500 mg Tablet 500 mg PO DAILY Hold Instructions: Resume on 01/27/23. cyanocobalamin (vi
== END 2023-01-27 13:00 | disposition home or self-care (01) ==
LOC: ANHED 01-26 01:53 → ANH3MEDSUR 01-27 12:08
PROVIDERS: Admitting Provider Internal Medicine; Emergency Provider Emergency Medicine; PCP Internal Medicine; Visit Provider Chiropractor
DX: R33.8 Other retention of urine (principal); R31.9 Hematuria, unspecified; R10.9 Unspecified abdominal pain; E78.5 Hyperlipidemia, unspecified; Z85.46 Personal history of malignant neoplasm of prostate; I12.9 Hypertensive chronic kidney disease with stage 1 through stage 4 chronic kidney disease, or unspecified chronic kidney disease; E11.22 Type 2 diabetes mellitus with diabetic chronic kidney disease; N18.30 Chronic kidney disease, stage 3 unspecified; Z98.890 Other specified postprocedural states; Z79.82 Long term (current) use of aspirin; Z79.51 Long term (current) use of inhaled steroids; Z79.84 Long term (current) use of oral hypoglycemic drugs; Z79.891 Long term (current) use of opiate analgesic; Z79.899 Other long term (current) drug therapy; Z82.49 Family history of ischemic heart disease and other diseases of the circulatory system; Z83.3 Family history of diabetes mellitus
CPT/HCPCS: 36415; 51700; 80048; 81001; 82948; 85025; 85610; 85730; 87086; 99285; A9270; C1769; G0378; J0690; J2704; J3010; J7120

== ENCOUNTER 2023-02-14 10:35 | Outpatient (CLI) | payer MEDICARE, SELFPAY ==
[2023-02-14 11:26] LABS: Albumin Level 3.9 g/dL (3.5-5.1); Anion Gap 5 mmol/L (8-16); Blood Urea Nitrogen 17 mg/dL (9-20); Calcium 8.8 mg/dL (8.4-10.2); Carbon Dioxide 27 mmol/L (22-30); Chloride 103 mmol/L (98-107); Estimated Glomerular Filt Rate 59; Glucose 129 mg/dL (65-110); Phosphorus 3.1 mg/dL (2.5-4.5); Potassium 4.6 mmol/L (3.4-5.0); Sodium 135 mmol/L (137-145)
== END 2023-02-14 10:36 | disposition home or self-care (01) ==
PROVIDERS: PCP Internal Medicine; Visit Provider Internal Medicine Nephrology
DX: R33.8 Other retention of urine (principal); N18.31 Chronic kidney disease, stage 3a
CPT/HCPCS: 36415; 80069

== ENCOUNTER 2023-06-19 10:19 | Outpatient (CLI) | payer MEDICARE, SELFPAY ==
[2023-06-19 10:49] LABS: Hemoglobin 13.2 g/dL (14.0-18.0); Mean Corpuscular HGB Conc 31.4 g/dl (32-36); Mean Corpuscular Hemoglobin 27.3 pg (26-34); Mean Platelet Volume 10.3 fl (7.4-10.4); Platelet Count Result 230 k/mm3 (150-375); Red Blood Count 4.83 M/mm3 (4.6-6.20); Red Cell Distribution Width 13.1 % (11.5-14.5); White Blood Count 8.4 K/mm3 (4.5-10.0)
[2023-06-19 10:58] LABS: Albumin Level 4.1 g/dL (3.5-5.1); Anion Gap 5 mmol/L (8-16); Blood Urea Nitrogen 15 mg/dL (9-20); Calcium 9.1 mg/dL (8.4-10.2); Carbon Dioxide 26 mmol/L (22-30); Chloride 106 mmol/L (98-107); Estimated Glomerular Filt Rate 59; Glucose 107 mg/dL (65-110); Phosphorus 3.1 mg/dL (2.5-4.5); Potassium 4.7 mmol/L (3.4-5.0); Sodium 137 mmol/L (137-145)
[2023-06-19 11:01] LABS: Creatinine Urine 141.8 mg/dL; Total Protein Urine Random 21 mg/dL; Ur Ttl Prot Creatinine Ratio 0.15 mg/mg (0-0.20)
[2023-06-19 11:09] LABS: Parathyroid Intact 121.2 pg/mL (7.5-53.5)
[2023-06-19 11:22] LABS: Hemoglobin A1C 6.6 % (<5.7)
[2023-06-19 11:41] LABS: Vitamin D 25 Hydroxy 33.8 ng/mL
== END 2023-06-19 10:20 | disposition home or self-care (01) ==
PROVIDERS: PCP Family Medicine; Referring Provider Internal Medicine Nephrology; Visit Provider Family Medicine
DX: E11.65 Type 2 diabetes mellitus with hyperglycemia (principal); N18.31 Chronic kidney disease, stage 3a; N40.0 Benign prostatic hyperplasia without lower urinary tract symptoms; E55.9 Vitamin D deficiency, unspecified; N25.81 Secondary hyperparathyroidism of renal origin; Z90.5 Acquired absence of kidney; D64.9 Anemia, unspecified
CPT/HCPCS: 36415; 80069; 82306; 82570; 83036; 83970; 84156; 85027

== ENCOUNTER 2023-06-20 10:03 | Outpatient (CLI) | payer MEDICARE, SELFPAY ==
--- NOTE | 2023-06-20 10:31 | EST_ITS ---
Patient Info Name: Buck Givens Age: 83 years : 1940 Gender: Male Ht: 74 in Wt: 192 lbs BSA: 2.14 m2 HR: 70 bpm BP: 131 / 71 mmHg Heart Rhythm: Sinus Rhythm Exam Date: 06/20/2023 10:45 AM Exam Location: [facility] Pulmonary Patient Status: Outpatient Admit Date: 06/20/2023 Staff Ordering Physician: Asia Overton APRN Supervisor Post Wave: Priya Durbin RDCS Attending Provider: DR. MATTHEWS Referring Physician: Brooklynn EUGENE; Exercise Technologist: Priya Durbin RDCS Exercise Physician: Preston Matthews DO Exam Type: CA stress echo Study Info Indications R06.00 - Dyspnea, unspecified Treadmill exercise stress echocardiogram is performed. Summary 1. 1. Negative Sundar exercise stress test for ischemic ST changes by ECG criteria. 2. 2. Good functional capacity, achieving 7 METs of workload. 3. 3. Appropriate HR response to exercise. 4. 4. Appropriate HR recovery at 1 minute post exercise. 5. 5. Negative stress echocardiogram for ischemia by wall motion analysis. 6. 6. Patient informed of the above results. Stress Echo Findings Left Ventricle Appropriate increase in LV endocardial thickening with systole. Appropriate augmenation of contractility with systole. No wall motion abnormality. Left Ventricle Normal LV systolic function, no wall motion abnormality. Protocol: Sundar Stress ECG Details Stage: REST Duration (min): 5 min : 8 sec Speed (mph): 0.0 Grade (%): 0 HR (bpm): 72 SBP (mmHg): 137 DBP (mmHg): 71 METS: --- Stage: REST Duration (min): 12 min : 30 sec Speed (mph): 0.0 Grade (%): 0 HR (bpm): 69 SBP (mmHg): 137 DBP (mmHg): 71 METS: --- Stage: STAGE 1 Duration (min): 1 min : 0 sec Speed (mph): 1.7 Grade (%): 10 HR (bpm): 84 SBP (mmHg): 137 DBP (mmHg): 71 METS: --- Stage: STAGE 1 Duration (min): 2 min : 0 sec Speed (mph): 1.7 Grade (%): 10 HR (bpm): 89 SBP (mmHg): 137 DBP (mmHg): 71 METS: --- Stage: STAGE 1 Duration (min): 3 min : 0 sec Speed (mph): 1.7 Grade (%): 10 HR (bpm): 95 SBP (mmHg): 169 DBP (mmHg): 73 METS: --- Stage: STAGE 2 Duration (min): 1 min : 0 sec Speed (mph): 2.5 Grade (%): 12 HR (bpm): 103 SBP (mmHg): 169 DBP (mmHg): 73 METS: --- Stage: STAGE 2 Duration (min): 2 min : 0 sec Speed (mph): 2.5 Grade (%): 12 HR (bpm): 111 SBP (mmHg): 162 DBP (mmHg): 73 METS: --- Stage: STAGE 2 Duration (min): 2 min : 45 sec Speed (mph): 0.0 Grade (%): 0 HR (bpm): 116 SBP (mmHg): 162 DBP (mmHg): 73 METS: --- Stage: RECOVERY Duration (min): 0 min : 14 sec Speed (mph): 0.0 Grade (%): 0 HR (bpm): 115 SBP (mmHg): 162 DBP (mmHg): 73 METS: --- Stage: RECOVERY Duration (min): 1 min : 14 sec Speed (mph): 0.0 Grade (%): 0 HR (bpm): 104 SBP (mmHg): 162 DBP (mmHg): 73 METS: --- Stage: RECOVERY Duration (min): 2 min : 4 sec Speed (mph): 0.0 Grade (%): 0 HR (bpm): 96 SBP (mmHg): 162 DBP (mmHg): 73 METS: --- Rest HR:
== END 2023-06-20 10:04 | disposition home or self-care (01) ==
LOC: ANHCARD 10:03
PROVIDERS: PCP Family Medicine; Visit Provider Nurse Practitioner Family
DX: R06.09 Other forms of dyspnea (principal)
CPT/HCPCS: 93351

== ENCOUNTER 2023-09-07 11:28 | Outpatient (CLI) | payer MEDICARE, SELFPAY ==
--- NOTE | 2023-09-07 11:30 | ECG_ITS ---
Measurements Intervals [place] Rate: 72 P: 62 DC: 155 QRS: 52 QRSD: 86 T: 59 QT: 371 QTc: 408 Interpretive Statements SINUS RHYTHM EARLY PRECORDIAL R/S TRANSITION BASELINE ARTIFACT- I, II, AVR, AVL BORDERLINE ECG COMPARED TO ECG 11/01/2021 11:09:10 NO SIGNIFICANT CHANGES Electronically Signed On 09-07-2023 11:43:44 [employer] by Preston Chester D.O.
[2023-09-07 12:03] LABS: INR 1.1; Prothrombin Time 14.5 Seconds (11.1-14.7)
[2023-09-07 12:04] LABS: Partial Thromboplastin Time 30.8 SECONDS (22.3-36.8)
[2023-09-07 12:06] LABS: Anion Gap 9 mmol/L (8-16); Blood Urea Nitrogen 19 mg/dL (9-20); Calcium 9.9 mg/dL (8.4-10.2); Carbon Dioxide 28 mmol/L (22-30); Chloride 104 mmol/L (98-107); Estimated Glomerular Filt Rate 54; Glucose 118 mg/dL (65-110); Potassium 4.1 mmol/L (3.4-5.0); Sodium 141 mmol/L (137-145)
== END 2023-09-07 11:29 | disposition home or self-care (01) ==
LOC: ANHSURGERY 11:32
PROVIDERS: Anesthesiology; PCP Family Medicine; Visit Provider Surgery
DX: Z01.812 Encounter for preprocedural laboratory examination (principal); Z01.810 Encounter for preprocedural cardiovascular examination; E78.2 Mixed hyperlipidemia; E11.65 Type 2 diabetes mellitus with hyperglycemia; N18.2 Chronic kidney disease, stage 2 (mild); E11.22 Type 2 diabetes mellitus with diabetic chronic kidney disease
CPT/HCPCS: 36415; 80048; 85610; 85730; 93005

== ENCOUNTER 2023-09-12 03:12 | Day surgery (SDC) | payer MEDICARE, SELFPAY ==
--- NOTE | 2023-09-05 13:12 | PC.NURSE ---
Report to the Outpatient Waiting Room, entrance under the green pavilion located off [facility], at time _0630 on date _09/12/23 . Planned Procedure Time: __0830 . Time changes happen often and if your time is changed the preop area will call you the afternoon before. - You and your visitor will be asked to self-screen and do not enter if you have any COVID symptoms. - A mask is optional within the hospital at this time. Patients may have clear liquids (water, carbonated beverages, clear teas, apple juice) until 3 hours prior to surgery with a maximum of 20 ounces. - No food from midnight until time of surgery - Infants may have breast milk until 4 hours before surgery, formula 6 hours prior to surgery. - Children will be allowed to drink immediately following surgery. If applicable, please bring a bottle or sippy cup to assist with drinking. Juice, water, soda, and popsicles are readily available. For infants on formula, please bring formula the day of surgery. Pacifiers are allowed. Take the following medications with a SIP of water the morning of surgery: NONE DO NOT STOP ANY OF YOUR OTHER PRESCRIPTION MEDICATIONS PRIOR TO SURGERY ?EXCEPT THE FOLLOWING Medications to discontinue per physician __ALL VITAMINS AND SUPPLEMENTS 3 DAYS PRE OP .LAST DOSE 09/08/23 Please no make-up, nail [place] islander, hairspray, perfume, deodorant, or body powder the day of surgery. No jewelry (including any body piercings) or valuables the day of surgery, leave them at home. Please take a shower or bath the night before, or the morning of, surgery with an antibacterial soap. Wear comfortable, loose fitting clothing. Children are encouraged to wear pajamas. - Jewelry must be removed prior to entering the operating room. Rings and piercings that are not removed may be cut off. - The hospital will not accept responsibility for valuables. - Please leave all valuables, including medications, at home the day of surgery. If you are going home after surgery, a licensed motor coach bus driver must drive you home. - NO public transportation without another adult if you receive anesthesia. - We recommend that an adult stay with you for 24 hours following discharge. - We also recommend that you do not drive, make important decision, drink alcoholic beverages, or take any drugs that were not prescribed by your health care provider for at least 24 hours after your discharge time. For Pediatric surgeries, we recommend two adults accompany the child home. Follow any additional instructions given to you from your surgeon. If you or anyone in your household have experienced Covid symptoms in the past week, please notify your surgeon or the nurse liaison at the phone number below for possible testing. Telephone instructions given to _PATIENT and asked if any additional questions and then verbalized understanding. Patient advised to call surgeon office or pre surgery nurse liaison [phone] if any additional questions.
[2023-09-05 13:28] VITALS: BMI 24.6
--- NOTE | 2023-09-11 14:05 | WPDANESEPPF ---
Anes - Initial Pre Proc Eval Procedure: Operation Date: 09/12/23 08:30 Proposed Procedures p Rectal Exam Under Anesthesia with Anal Fistulotomy - Dada Marques MD Date/Time: 09/11/23 14:05 Surgeon: Dada Marques MD Pre Op Diagnosis: Anal Fistula Patient Data Age: 83 Gender: M Height: 1.88 m Weight: 87.1 kg Allergies Allergy/AdvReac Type Severity Reaction Status Date / Time adhesive tape Allergy Severe VERY LARGE Verified 09/05/23 13:05 BLISTERS morphine AdvReac Severe SEVERE N/V Verified 09/05/23 13:05 WITH EVERY DOSE Home Medications Medication Instructions Recorded Confirmed Type leuprolide (3 month) 11.25 mg (3 11.25 mg IM [id number] 11/07/19 09/05/23 History month) intramuscular syringe kit (Lupron Depot) aspirin 81 mg tablet,delayed 81 mg PO DAILY #1 tablet 12/24/20 09/05/23 Rx release calcium 500 mg tablet 500 mg PO DAILY 01/17/23 09/05/23 History cyanocobalamin (vitamin B-12) 1,000 mcg PO DAILY 01/17/23 09/05/23 History 1,000 mcg capsule ezetimibe 10 mg-simvastatin 80 mg 1 tablet PO DAILY #90 tabs 06/08/23 09/05/23 Rx tablet allopurinol 100 mg tablet 100 mg PO DAILY #90 tabs 06/12/23 09/05/23 Rx dapagliflozin propanediol 5 mg 5 mg PO QAM #90 tabs 06/12/23 09/05/23 Rx tablet (Farxiga) calcitriol 0.25 mcg capsule 0.25 mcg PO 3XW #12 caps 07/18/23 09/05/23 Rx fluticasone propionate 50 2 spray intranasal DAILY PRN 09/03/23 09/05/23 Rx mcg/actuation nasal Congestion #16 grams spray,suspension (Flonase Allergy Relief) Patient hx anesthesia problems: none Family hx anesthesia problems: none Results Review: All pre-operative results and documents have been reviewed as part of the pre-operative evaluation. [facility] Past Medical History Medical History CKD stage 3 due to type 2 diabetes mellitus Essential hypertension Mixed hyperlipidemia Type 2 diabetes mellitus with hyperglycemia Surgical History Surgical History S/P TURP (status post transurethral resection of prostate) Family History Family History Sibling Family history of malignant neoplasm Family history of heart disease in male family member before age 55 Diabetes mellitus Hypertension Heart disease Father Family history of diabetes mellitus in first degree relative Family history of heart disease in male family member before age 55 Diabetes mellitus Family history of cardiovascular disease, Onset Age: 76 Hypertension Heart disease Mother Family history of diabetes mellitus in first degree relative Family history of heart disease in male family member before age 55 Diabetes mellitus Hypertension Family history of cardiovascular disease, Onset Age: 77 Heart disease Social History Social History Smoking status: Never smoker Second hand tobacco smoke exposure: No Alcohol intake: never Substance use: never Substance use type: does not use Lack of Transportation: No Lack of Food: Never True Current Housing: I Have Housing Concerned About Future Housing: No Difficulty Paying Gas/Electric Bills: No Difficulty Paying for Meds: No Currently Unemployed: No Education: Master's Degree or Higher Difficulty w/ Childcare or Family Care: No Living arrangements: alone Gender identity (if verbalized by the patient): Male Spiritual care concerns: No Anes - Eval Final PreProcedure Day of Procedure 09/11/23 14:05 Patient weight: normal Heart: regular rate and rhythm Lungs: clear to auscultation and normal air movement Airway: Mallampati scale class II Neurological: alert and oriented Last oral intake: >/= 8 hours ASA classification: III Emergent: no Anesthetic plan: proceed Anesthesia type and monitor
[2023-09-12] VITALS (7 sets, daily range): BP systolic 118–150; BP diastolic 57–78; PULSE 69–84; RESP 12–16; TEMP 36.2–36.4; O2SAT 99–100
[2023-09-12] MEDS: ACETAMINOPHEN 500 MG TABLET 1000 MG PO (07:20)
[2023-09-12] MEDS: LACTATED RINGERS 1,000 ML 30 ML IV CONT (07:20)
[2023-09-12] MEDS: KETOROLAC 15 MG/ML VIAL (*BKC) IV PUSH (07:22)
--- NOTE | 2023-09-12 08:13 | WPDHPUPDATE1 ---
History and Physical Update Update Date/Time: 09/12/23 08:13 History and Physical has been reviewed, including an updated exam of the patient. There are NO changes in the patient's condition. Risks, benefits, and alternatives have been discussed and questions answered. Patient agrees to proceed with procedure.
[2023-09-12] MEDS: ceFAZolin 2 GM/D5W 50 ML 2 GM/50 ML BAG IVPB (08:25)
[2023-09-12] MEDS: BUPIVACAINE/EPINEPHRINE 0.5% 50 ML VIAL 40 ML INFILTRATE (08:48)
--- NOTE | 2023-09-12 09:33 | P.OP_ITS ---
Procedure Note - Detailed Date of Procedure 09/12/23 Pre-op Diagnosis Anal Fistula Post-op Diagnosis Other (Healed perianal infection) Procedure Performed Rectal exam under anesthesia Surgeon Dada Marques MD [employer] Window [employer] Odalis Stewart [facility] Anesthesia General Indications Patient was experiencing severe pain on the left side of his anal canal. It was very tender there as well. He was treated with some oral antibiotics from Dr. Gupta his primary care physician. This was improving when I saw him in the office. He still was very tender on the left side and appeared in inflammatory process was there. No external opening was ever seen. He also had some anterior midline scar tissue. Patient reported as well that he had a painful infection on the left side many decades ago that required surgery. 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 He is to can to surgery now for rectal examination under anesthesia and, if present, fistulotomy or other appropriate treatment. Findings No sign of infection or fistula was seen despite thorough examination. He did have some scar tissue in the right anterior area very close to the midline. Description of Procedure Patient was taken to surgery and induced into general anesthesia. He was turned and placed in prone rachel-knife position. Buttocks were taped apart. Prep and drape was carried out. Before placing any local anesthetic, I carefully examined the skin outside of the anal verge. I then used Alonso-Nieves anoscope site and carefully evaluated for an internal opening anywhere just inside the rectum at the dentate line. I tried expressing purulence from an area inside the rectum to identify an internal opening. I also tried probing particularly on the left side and anteriorly where the scar tissue was located to try to find an occult internal opening. None was found. I recheck for an external opening and there was nothing abnormal at all on the left side and only the scar tissue located just to the right of the anterior midline but no sign of any opening. Seeing no evidence of a fistula or abscess, I terminated the procedure. Fluff dressing was placed over the rectum. Patient was returned to a supine position, awakened and extubated. He was then taken to recovery in good condition. Sponge needle counts were correct x2. Estimated Blood Loss 0 Drains No Packing No Pathology None sent Complications No immediate complications Condition Stable Disposition PACU [facility] Billing Surgery - Charge Forward: Surgery Billing (Rectal exam under anesthesia)
== END 2023-09-12 10:45 | disposition home or self-care (01) ==
PROVIDERS: PCP Family Medicine; Visit Provider Surgery
PROC: (CPT 45990; principal; 2023-09-12 08:30)
DX: K60.3 Anal fistula (principal); E11.65 Type 2 diabetes mellitus with hyperglycemia; N18.30 Chronic kidney disease, stage 3 unspecified; E11.22 Type 2 diabetes mellitus with diabetic chronic kidney disease; I12.9 Hypertensive chronic kidney disease with stage 1 through stage 4 chronic kidney disease, or unspecified chronic kidney disease
CPT/HCPCS: 45990; 36415; 80048; 85610; 85730; 93005; A9270; J0330; J0690; J1885; J2405; J2704; J3010; J7120

== ENCOUNTER 2023-10-02 16:07 | Outpatient (CLI) | payer MEDICARE, SELFPAY ==
--- NOTE | ~2023-10-02 | US_ITS ---
Thyroid ultrasound. Clinical History: Goiter COMPARISON: 02/01/2022 Findings: Real-time sonography of the thyroid gland was performed. The right lobe measures 6.5 x 2.8 x 4.2 cm. The left lobe measures 7.7 x 4.4 x 5.7 cm. The isthmus is 2 mm in AP diameter. Thyroid parenchyma is diffusely heterogeneous, with probable numerous nodules throughout the gland. Impression: Enlarged, heterogeneous thyroid gland, with multiple nodules, similar in appearance to prior exam. Fi ndings are most consistent with multinodular goiter.. Reviewed, dictated and finalized at location . F [employer] Impression: Enlarged, heterogeneous thyroid gland, with multiple nodules, similar in appear ance to prior exam. Findings are most consistent with multinodular goiter..
== END 2023-10-02 16:08 | disposition home or self-care (01) ==
PROVIDERS: PCP Family Medicine; Visit Provider Family Medicine
DX: E04.2 Nontoxic multinodular goiter (principal)
CPT/HCPCS: 76536

== ENCOUNTER 2023-10-17 15:11 | Outpatient (CLI) | payer MEDICARE, SELFPAY ==
--- NOTE | ~2023-10-17 | CT_ITS ---
EXAMINATION: CT soft tissue neck chest wo DATE: 10/17/2023 15:29 INDICATION: Nontoxic multinodular goiter. TECHNIQUE: Computed tomography (CT) of the neck and chest was performed without intravenous contrast. Automated exposure control and iterative reconstruction technique were employed. The dose-length pro duct was 984.36 mGy-cm. COMPARISON: Thyroid ultrasound 10/02/2023, 02/01/2022, 09/04/2016 FINDINGS: CT NECK: There are no pathologically enlarged lymph nodes. Right thyroid lobe measures 9.0 x 5.2 x 4. 5 cm. Left thyroid lobe measures 11.6 x 5.3 x 5.4 cm. The thyroid extends into the superior mediastin um and exerts mass effect on the trachea and esophagus. The thyroid demonstrates heterogeneous attenu ation. There is moderate cervical spondylosis. CT CHEST: The lungs demonstrate mild atelectasis. There is a pneumatocele in right upper lobe. A calc ified left lung nodule and calcified mediastinal lymph nodes are consistent with old granulomatous di sease. No pleural effusion. The heart size is normal. There are coronary artery calcifications. No pe ricardial effusion. There is an 18 mm cyst in the liver. There is bilateral gynecomastia. There is mi ld thoracic spondylosis. IMPRESSION: 1. Goiter. Reviewed, dictated and finalized at location A. NO FLOOR WALKER IMPRESSION: 1. Goiter.
[2023-10-17 16:05] LABS: Creatinine Urine 83.9 mg/dL; Total Protein Urine Random 13 mg/dL; Ur Ttl Prot Creatinine Ratio 0.15 mg/mg (0-0.20)
[2023-10-17 16:09] LABS: Anion Gap 7 mmol/L (8-16); Blood Urea Nitrogen 18 mg/dL (9-20); Calcium 9.6 mg/dL (8.4-10.2); Carbon Dioxide 28 mmol/L (22-30); Chloride 104 mmol/L (98-107); Estimated Glomerular Filt Rate 54; Glucose 131 mg/dL (65-110); Phosphorus 2.4 mg/dL (2.5-4.5); Potassium 4.2 mmol/L (3.4-5.0); Sodium 139 mmol/L (137-145)
[2023-10-17 16:21] LABS: Parathyroid Intact 61.1 pg/mL (7.5-53.5)
== END 2023-10-17 15:12 | disposition home or self-care (01) ==
PROVIDERS: Internal Medicine Nephrology; PCP Family Medicine; Visit Provider Family Medicine
DX: E04.2 Nontoxic multinodular goiter (principal); E11.9 Type 2 diabetes mellitus without complications; N18.31 Chronic kidney disease, stage 3a; N25.81 Secondary hyperparathyroidism of renal origin; Z90.5 Acquired absence of kidney
CPT/HCPCS: 36415; 70490; 71250; 80069; 82570; 83970; 84156

== ENCOUNTER 2024-05-06 10:48 | Outpatient (CLI) | payer MEDICARE, SELFPAY ==
[2024-05-06 11:25] LABS: Hematocrit 41.5 % (42.0-52.0); Hemoglobin 13.1 g/dL (14.0-18.0); Mean Corpuscular HGB Conc 31.6 g/dl (32-36); Mean Corpuscular Hemoglobin 27.1 pg (26-34); Mean Corpuscular Volume 85.9 fl (80-100); Platelet Count Result 255 k/mm3 (150-375); Red Blood Count 4.83 M/mm3 (4.6-6.20); Red Cell Distribution Width 14.2 % (11.5-14.5)
[2024-05-06 11:37] LABS: Alanine Aminotransferase 13 U/L (6-50); Albumin Level 4.4 g/dL (3.5-5.1); Alkaline Phosphatase 56 U/L (38-126); Anion Gap 9 mmol/L (4-12); Aspartate Amino Transferase 25 U/L (17-59); Bilirubin,Total 0.5 mg/dL (0.2-1.3); Blood Urea Nitrogen 16 mg/dL (9-20); Calcium 9.5 mg/dL (8.4-10.2); Carbon Dioxide 27 mmol/L (22-30); Chloride 100 mmol/L (98-107); Cholesterol 171 mg/dL (0-200); Estimated Glomerular Filt Rate 58; Glucose 99 mg/dL (65-110); HDL Direct 47 mg/dL; Potassium 4.4 mmol/L (3.4-5.0); Sodium 136 mmol/L (137-145); Triglycerides 158 mg/dL (<150); Uric Acid 4.8 mg/dL (3.5-8.5)
[2024-05-06 11:39] LABS: Albumin Level 4.4 g/dL (3.5-5.1); Anion Gap 11 mmol/L (4-12); Blood Urea Nitrogen 15 mg/dL (9-20); Calcium 9.4 mg/dL (8.4-10.2); Carbon Dioxide 25 mmol/L (22-30); Chloride 101 mmol/L (98-107); Estimated Glomerular Filt Rate 58; Glucose 100 mg/dL (65-110); Phosphorus 2.6 mg/dL (2.5-4.5); Potassium 4.5 mmol/L (3.4-5.0); Sodium 137 mmol/L (137-145)
[2024-05-06 11:48] LABS: LDL Cholesterol Direct 98 mg/dL
[2024-05-06 11:51] LABS: Creatinine Urine 37.5 mg/dL; Total Protein Urine Random 14 mg/dL; Ur Ttl Prot Creatinine Ratio 0.37 mg/mg (0-0.20)
[2024-05-06 11:55] LABS: Hemoglobin A1C 6.9 % (<5.7); Parathyroid Intact 88.5 pg/mL (7.5-53.5)
[2024-05-06 12:01] LABS: Vitamin D 25 Hydroxy 56.6 ng/mL
== END 2024-05-06 10:49 | disposition home or self-care (01) ==
LOC: ANHLAB 10:53
PROVIDERS: PCP Nurse Practitioner Family; Referring Provider Nurse Practitioner Family; Visit Provider Internal Medicine Nephrology
DX: E04.2 Nontoxic multinodular goiter (principal); E78.2 Mixed hyperlipidemia; D64.9 Anemia, unspecified; E11.65 Type 2 diabetes mellitus with hyperglycemia; M10.9 Gout, unspecified; E55.9 Vitamin D deficiency, unspecified; N18.31 Chronic kidney disease, stage 3a; N25.81 Secondary hyperparathyroidism of renal origin; Z90.5 Acquired absence of kidney
CPT/HCPCS: 36415; 80053; 80061; 80069; 82306; 82570; 83036; 83970; 84156; 84439; 84443; 84550; 85027

== ENCOUNTER 2024-10-06 13:38 | Outpatient (CLI) | payer MEDICARE, SELFPAY ==
[2024-10-06 14:05] LABS: Albumin Level 3.8 g/dL (3.5-5.1); Anion Gap 6 mmol/L (4-12); Blood Urea Nitrogen 19 mg/dL (9-20); Calcium 9.4 mg/dL (8.4-10.2); Carbon Dioxide 28 mmol/L (22-30); Chloride 103 mmol/L (98-107); Estimated Glomerular Filt Rate 54; Glucose 110 mg/dL (65-110); Phosphorus 3.7 mg/dL (2.5-4.5); Potassium 4.4 mmol/L (3.4-5.0); Sodium 137 mmol/L (137-145)
[2024-10-06 14:14] LABS: Creatinine Urine 130.6 mg/dL; Total Protein Urine Random 9 mg/dL; Ur Ttl Prot Creatinine Ratio 0.07 mg/mg (0-0.20)
== END 2024-10-06 13:39 | disposition home or self-care (01) ==
LOC: ANHLAB 13:38
PROVIDERS: PCP Family Medicine; Visit Provider Internal Medicine Nephrology
DX: E11.22 Type 2 diabetes mellitus with diabetic chronic kidney disease (principal); N18.31 Chronic kidney disease, stage 3a; Z90.5 Acquired absence of kidney
CPT/HCPCS: 36415; 80069; 82570; 84156